=== PATIENT | female | born 1970 ===

== ENCOUNTER 2022-12-16 12:58 | Inpatient (IN) | payer MEDICARE, MEDICAID, SELFPAY ==
--- NOTE | 2022-12-15 21:30 | ECG_ITS ---
Measurements Intervals [place] Rate: 78 P: [place]: 0 QRS: -30 QRSD: 97 T: 83 QT: 351 QTc: 402 Interpretive Statements SINUS RHYTHM TRANSIENT ACCELERATED JUNCTIONAL RHYTHM BORDERLINE AV CONDUCTION DELAY INCOMPLETE RIGHT BUNDLE BRANCH BLOCK ABNORMAL ECG NO PREVIOUS ECG AVAILABLE FOR COMPARISON Electronically Signed On 12-16-2022 6:47:58 CDT by Isael Bowen D.O.
[2022-12-16] VITALS (42 sets, daily range): BP systolic 104–158; BP diastolic 63–100; PULSE 69–109; RESP 16–26; TEMP 31.9–37.3; O2SAT 92–100; BMI 33.4
--- NOTE | ~2022-12-16 | XR_ITS ---
Portable chest x-ray Comparison: 12/15/2022 at 9:36 PM Clinical History: Line placement Findings: Endotracheal tube and NG tube are in satisfactory positions. Diffuse interstitial prominen ce the right lung is again present, though less prominent as compared to prior exam. Left lung is ess entially clear. No pleural effusion or pneumothorax. Cardiomediastinal silhouette is stable. Bones a nd soft tissues are unremarkable. Impression: Extensive interstitial prominence of the right lung. Correlate for asymmetric interstitial edema or i nterstitial infection of the right lung. Support tubes, as above. Reviewed, dictated and finalized at location . Impression: Extensive interstitial prominence of the right lung. Correlate for asymmetric i nterstitial edema or interstitial infection of the right lung. Support tubes, as above.
--- NOTE | ~2022-12-16 | CT_ITS ---
EXAMINATION: CT BRAIN W/O DATE: 12/19/2022 11:50 INDICATION: Seizures. TECHNIQUE: Computed tomography (CT) of the head was performed without intravenous contrast. The dose- length product was 605.33 mGy-cm. COMPARISON: No prior studies for comparison. FINDINGS: There is poor farfan-white differentiation. There is effacement of the cortical sulci suggest ing diffuse edema. No ventriculomegaly or midline shift. Midline sagittal images demonstrate a normal corpus callosum, c raniovertebral junction and sella turcica. Basilar cisterns are patent. Paranasal sinuses and mastoids are pneumatized. No depressed skull fractures. IMPRESSION: 1. Diffuse effacement of the cortical sulci with poor farfan-white differentiation, suspicious for unde rlying vasogenic edema. No focal infarction or intracranial hemorrhage is seen. Reviewed, dictated and finalized at location A. IMPRESSION: 1. Diffuse effacement of the cortical sulci with poor farfan-white differentiatio n, suspicious for underlying vasogenic edema. No focal infarction or intracrani al hemorrhage is seen.
--- NOTE | ~2022-12-16 | XR_ITS ---
Upright portable view of the abdomen Clinical history: NG tube placement Findings: NG tube is in satisfactory position. Bowel gas pattern is nonspecific. No evidence for obst ruction or free air. No abnormal mass lesion or calcification is seen. Osseous structures are intact. Impression: NG tube in satisfactory position. Nonspecific bowel gas pattern. Reviewed, dictated and finalized at [facility]. Impression: NG tube in satisfactory position. Nonspecific bowel gas pattern.
--- NOTE | ~2022-12-16 | XR_ITS ---
Portable chest x-ray Comparison: None Clinical History: Tube placement Findings: Endotracheal tube is in satisfactory position. There is diffuse interstitial prominence of the right lung in particular. Possible minimal involvement in the left lung. No pleural effusion or pneumothorax. Cardiomediastinal silhouette is stable. Bones and soft tissues are unremarkable. Impression: Diffuse interstitial prominence of the right lung in particular. Correlate for asymmetric interstitia l edema or extensive interstitial infection the right lung. ET tube in place. Reviewed, dictated and finalized at location M. Impression: Diffuse interstitial prominence of the right lung in particular. Correlate for asymmetric interstitial edema or extensive interstitial infection the right phil g. ET tube in place.
--- NOTE | ~2022-12-16 | CT_ITS ---
Non-contrast Head CT History: Cardiac arrest Technique: Axial non-contrast imaging of the brain was performed. Dose reduction technique was used on this scan by utilizing automated exposure control and iterative reconstruction technique. The dose -length product (DLP) was 681.00 mGy-cm. Findings: There is no evidence of intracranial hemorrhage or mass lesion. There is probable preserva tion of farfan-white distinction, with some probable technical degradation. The ventricles and subarac hnoid spaces are normal in size. The calvarium appears normal. The visualized paranasal sinuses and mastoid air cells are clear. Impression: No significant abnormality seen. If there is persistent clinical concern for hypoxic/anoxic encephalo rachael, then follow-up MR would be recommended. Reviewed, dictated and finalized at [facility]. Impression: No significant abnormality seen. If there is persistent clinical concern for hy poxic/anoxic encephalopathy, then follow-up MR would be recommended.
--- NOTE | ~2022-12-16 | XR_ITS ---
XR chest 1V portable 12/20/2022 05:42 Indication: Respiratory failure Procedure: AP portable chest Comparison: Comparison to multiple prior studies sequentially, with oldest reviewed study dated 12/17. Findings: Endotracheal tube tip 3.2 cm above the catia. NG tube in the stomach. Heart size normal. B ilateral perihilar interstitial infiltrates with peribronchial thickening. No pleural effusion or pne umothorax. Impression: 1: Developing mild interstitial infiltrates bilaterally with peribronchial thickening which may repre sent pneumonia or edema. Reviewed, dictated and finalized at location A. Impression: 1: Developing mild interstitial infiltrates bilaterally with peribronchial thic kening which may represent pneumonia or edema.
--- NOTE | ~2022-12-16 | US_ITS ---
EXAMINATION: US renal BI DATE: 12/18/2022 13:12 INDICATION: Acute renal insufficiency. TECHNIQUE: Multiple ultrasound grayscale images of the kidneys were obtained. COMPARISON: None. FINDINGS: The right kidney measures 9.5 x 4.6 x 4.3 cm. The left kidney measures 10.1 x 4.3 x 3.6 cm. The kidne ys demonstrate normal echogenicity. There is no hydronephrosis in either kidney. No stones identifie d. The bladder is nonvisualized likely decompressed with a Camargo catheter reportedly in place. IMPRESSION: 1. Normal kidneys without hydronephrosis. Reviewed, dictated and finalized at location A.
--- NOTE | ~2022-12-16 | XR_ITS ---
Portable upright view of the abdomen Clinical history: NG tube placed Findings: NG tube is in satisfactory position. Bowel gas pattern is nonspecific. Moderate stool noted . No evidence for obstruction or free air. No abnormal mass lesion or calcification is seen. Osseous structures are intact. Impression: NG tube in satisfactory position. Moderate stool. Reviewed, dictated and finalized at [facility]. Impression: NG tube in satisfactory position. Moderate stool.
--- NOTE | ~2022-12-16 | XR_ITS ---
Portable chest x-ray Comparison: 12/15/2022 Clinical History: Respiratory failure Findings: Endotracheal tube and NG tube are in satisfactory positions. Possible minimal interstitial prominence in the lung bases bilaterally. Cardiomediastinal silhouette is stable. Bones and soft ti ssues are unremarkable. Impression: Questionable minimal residual interstitial prominence, especially right lung base. Support tubes, as above. Reviewed, dictated and finalized at location . Impression: Questionable minimal residual interstitial prominence, especially right lung ba se. Support tubes, as above.
--- NOTE | ~2022-12-16 | CT_ITS ---
EXAMINATION: CTA chest PE abdomen pel DATE: 12/16/2022 08:07 CDT INDICATION: Status post cardiac arrest. TECHNIQUE: Computed tomographic angiography (CTA) of the chest, abdomen, and pelvis was performed wit h 100 mL Omnipaque-350 intravenous contrast. The dose-length product was 2053.05 mGy-cm. Maximum inte nsity projection 3D-reconstructions of the aorta and other arteries were constructed by the technolog ist on a separate workstation. Automated exposure control and iterative reconstruction technique were employed. COMPARISON: CT dated 12/16/2022. FINDINGS: CHEST CTA: There is an endotracheal tube present. There is an NG tube in the stomach. No pneumothorax. There are patchy groundglass opacities throughout both lungs with peripheral interlobular septal thickening. T here is patchy focal areas of consolidation in the lower lobes. Heart size normal. There is emphysema . There are small subpleural nodules in the right upper lobe measuring 3 mm or less, likely benign. T here is mild mediastinal and right hilar lymphadenopathy, likely reactive. No evidence for aortic ane urysm or dissection. No central pulmonary embolism. ABDOMEN AND PELVIS CTA: No evidence for abdominal aortic aneurysm. The celiac axis, SMA, renal arteries and JEAN-PIERRE are patent. T here is a right femoral vascular catheter extending into the right external iliac vein. There are air -fluid levels in the small bowel and colon, most likely ileus. There are calcified granulomas of the spleen. Evaluation of the abdomen limited by motion. Fatty infiltration of the liver. There are calci fied granulomas of the liver. Gallbladder is distended. The pancreas, adrenal glands and kidneys are unremarkable. No free air or free fluid. There is Camargo catheter present in the bladder which is deco mpressed. Moderate multilevel degenerative disc disease. There is grade 1 spondylolisthesis at L5-S1. No focal lytic or blastic lesions. IMPRESSION: 1. Bilateral interstitial changes of the lungs with interlobular septal thickening, patchy groundglas s opacities, compatible with edema. Focal consolidation of the lower lobes is suspicious for superimp osed pneumonia. Consider aspiration. 2: Fluid throughout the small bowel and proximal colon with air-fluid levels, most likely adynamic il eus. 3: Thoracic lymphadenopathy, likely reactive. Reviewed, dictated and finalized at location B. IMPRESSION: 1. Bilateral interstitial changes of the lungs with interlobular septal thicken ing, patchy groundglass opacities, compatible with edema. Focal consolidation o f the lower lobes is suspicious for superimposed pneumonia. Consider aspiration . 2: Fluid throughout the small bowel and proximal colon with air-fluid levels, m ost likely adynamic ileus. 3: Thoracic lymphadenopathy, likely reactive.
--- NOTE | ~2022-12-16 | XR_ITS ---
Portable chest x-ray Comparison: 12/17/2022 Clinical History: Respiratory failure Findings: Endotracheal tube and NG tube are in satisfactory positions. Questionable minimal intersti tial prominence in the lung bases. Cardiomediastinal silhouette is stable. Bones and soft tissues ar e unremarkable. Impression: Questionable minimal bibasilar interstitial prominence, nonspecific. Support tubes, as above. Reviewed, dictated and finalized at location . Impression: Questionable minimal bibasilar interstitial prominence, nonspecific. Support tubes, as above.
--- NOTE | ~2022-12-16 | XR_ITS ---
Portable chest x-ray Comparison: 12/20/2022 Clinical History: Respiratory failure Findings: Endotracheal tube and NG tube are in satisfactory positions. There is probable minimal int erstitial prominence diffusely. No focal consolidation or pleural effusion. Cardiomediastinal silhou ette is stable. Bones and soft tissues are unremarkable. Impression: Probable diffuse interstitial prominence, unchanged. Support tubes, as above. Reviewed, dictated and finalized at location . Impression: Probable diffuse interstitial prominence, unchanged. Support tubes, as above.
--- NOTE | ~2022-12-16 | XR_ITS ---
XR chest 1V portable 12/19/2022 05:56 Indication: Respiratory failure Procedure: AP portable chest Comparison: Comparison to multiple prior studies sequentially, with oldest reviewed study dated 04/2023. Findings: NG tube in the stomach. Endotracheal tube tip approximately 3 cm above the catia. Bilatera l perihilar infiltrates, suspicious for pneumonia. No pleural effusion or pneumothorax. Impression: 1: Developing bilateral perihilar infiltrates, suspicious for pneumonia. Reviewed, dictated and finalized at location A. Impression: 1: Developing bilateral perihilar infiltrates, suspicious for pneumonia.
--- NOTE | ~2022-12-16 | CT_ITS ---
CT Scan of the Chest without Contrast: Clinical Indication: Cardiac arrest Technique: Contiguous sections were acquired throughout the chest without intravenous contrast. Dose reduction technique was used on this scan by utilizing automated exposure control and iterative recon struction technique. The dose-length product (DLP) was 710.68 mGy-cm. Findings: Endotracheal and NG tube are in place. There is no evidence of any significant mediastinal, hilar or axillary lymphadenopathy. Shotty medias tinal lymph nodes are not enlarged by size criteria. The mediastinal soft tissues appear normal. No p ericardial effusion. Minimal right pleural effusion present. No left pleural effusion. There is extensive interstitial prominence/thickening, most notably in the right lower lobe. There is patchy consolidation the right lower lobe with several focal irregular airspace opacities in the lef t lower lobe. There is a focal somewhat nodular opacity at the posterior right upper lobe measuring 1 cm in diameter (axial image 20). Images through the upper abdomen reveal no abnormalities. There are nondisplaced fractures of the lef t second, third, fourth, and fifth ribs anteriorly. There is probable nondisplaced fracture of the an terior right third rib. Impression: Probable mild diffuse mixed alveolar and interstitial pulmonary edema. Correlate for superimposed pne umonia, especially at the lower lobes, versus atelectatic change. Minimal right pleural effusion. Are the fractures, as detailed above. Reviewed, dictated and finalized at [facility]. Impression: Probable mild diffuse mixed alveolar and interstitial pulmonary edema. Correlat e for superimposed pneumonia, especially at the lower lobes, versus atelectatic change. Minimal right pleural effusion. Are the fractures, as detailed above.
[2022-12-16 06:17] LABS: Glucose Point of Care 154 mg/dl (65-105)
[2022-12-16 06:31] LABS: INR 1.7; Prothrombin Time 21.4 Seconds (11.1-14.7)
[2022-12-16 06:37] LABS: Add Urine Microscopic? NO; Appearance Urine Clear (Clear); Bilirubin Urine Negative (Negative); Blood Urine Negative (Negative); Color Urine Yellow (Yellow); Glucose Urine UA Negative (Negative); Ketones Urine Negative (Negative); Leukocyte Esterase Ur Negative LEU/UL (NEGATIVE); Nitrate Urine Negative (Negative); Protein Urine Negative (Negative); Urobilinogen Urine 0.2 mg/dL (<2.0)
--- NOTE | 2022-12-16 07:01 | ADMGEN ---
This patient, Katelyn Law, was admitted to Intensive Care Unit-11. Patient/family oriented to hospital policies and general routines including ID bracelet, bed and alarms, visiting hours, pain management, procedures, bathroom and other care routines, personal items, smoking policy, room service/diet, and visiting hours. Information on how to activate the Rapid Response Team has been discussed. Patient/Family are encouraged to report perceived risks to care and to ask questions if they do not understand what they are told or what they should do.
--- NOTE | 2022-12-16 07:21 | ECHO_ITS ---
Patient Info Name: Katelyn Law Age: 52 years : 1970 Gender: Female Ht: 66 in Wt: 206 lbs BSA: 2.12 m2 HR: 136 bpm BP: 134 / 102 mmHg Heart Rhythm: Sinus Rhythm, Tachycardia Technical Quality: Fair Exam Date: 12/16/2022 7:47 AM Exam Location: [facility] Pulmonary Patient Status: Inpatient Admit Date: 12/16/2022 Staff Ordering Physician: Ramon Paulino MD Cotton Chopper: Krystina Romero RDCS Attending Provider: Vasu Schaffer MD Exam Type: CA echo doppler color flow Study Info Indications - resp arrest/hypothermia Complete two-dimensional, color flow and Doppler transthoracic echocardiogram is performed. Summary 1. Complete two-dimensional, color flow and Doppler transthoracic echocardiogram is performed. 2. Left ventricular chamber dimension is normal. 3. Left ventricular systolic function is normal, estimated at 60-65%. 4. Left ventricular septal wall motion is abnormal with septal motion related to bundle branch block. 5. Right ventricular systolic function is normal. 6. Left atrial chamber dimension is mildly enlarged. 7. There is mild mitral valve regurgitation. 8. There is mild tricuspid valve regurgitation. Left Ventricle Left ventricular chamber dimension is normal. Left ventricular systolic function is normal, estimated at 60-65%. There is no increased left ventricular wall thickness. Left ventricular septal wall motion is abnormal with septal motion related to bundle branch block. Right Ventricle Right ventricular chamber dimension is normal. Right ventricular systolic function is normal. Left Atria Left atrial chamber dimension is mildly enlarged. Right Atria Right atrial chamber dimension is normal. Atrial Septum Intact interatrial septum visualized by color flow imaging. Aortic Valve The aortic valve is not well visualized. There is mild aortic valve sclerosis. There is no aortic valve stenosis. There is no aortic valve regurgitation. Pulmonic Valve The pulmonic valve is not well visualized. Mitral Valve There is mild mitral valve regurgitation. Tricuspid Valve There is mild tricuspid valve regurgitation. Pericardium/Pleural There is no pericardial effusion. Inferior Vena Cava Normal inferior vena cava with >50% collapse upon inspiration consistent with normal right atrial pressure, 3 mmHg. Aorta The aortic root size at the sinus of Valsalva is normal. Tricuspid Valve Name Value Normal Estimated PAP/RSVP RA Pressure 3 mmHg <=5 Report Signatures
[2022-12-16 07:26] LABS: Alveolar/Arterial O2 Gradient 190.6 mmHg; Base Excess ABG -1.9 mEq/l (+/-2.0); HCO3 ABG 23.6 mEq/l (22.0-26.0); Oxygen Saturation ABG 99.9 % (95.0-100.0); Oxyhemoglobin 97.9 % THb (90.0-100.0); PCO2 ABG 43.2 mmHg (35.0-45.0); PO2 ABG 479.2 mmHg (80.0-100.0); Total Hemoglobin 12.1 g/dL (12.0-18.0); pH ABG 7.355 (7.350-7.450)
[2022-12-16 07:27] LABS: Carboxyhemoglobin 0.9 % THb (0-2.0); Device VENTILATOR; Fractional Inspired Oxygen 100 %; Methemoglobin ABG 0.9 %THb (0-1.5); Modified Allen's Test Pass; PO2 FiO2 Ratio Arterial Blood 4.79 %; Reduced Hemoglobin 0.9 %THb (0-5.0); Site Drawn RIGHT RADIAL
[2022-12-16 07:28] LABS: Arterial Blood Gas PEEP 5 cmH2O; Arterial Blood Gas Vent Mode PRESSURE CONTROL; Arterial Blood Gas Ventilator rate 18 /MIN; Peak Inspiratory Pressure 28 cmH2O
[2022-12-16 07:37] LABS: Glucose Point of Care 140 mg/dl (65-105)
[2022-12-16 07:42] LABS: Amphetamine Screen Urine Negative (Negative); Barbiturate Screen Urine Negative (Negative); Benzodiazepines Screen Urine Negative (Negative); Cocaine Screen Urine Negative (Negative); Methadone Screen Urine Negative (Negative)
[2022-12-16 07:43] LABS: Cannabinoid Screen Urine Negative (Negative); Opiate Screen Urine Positive (Negative); Phencyclidine Screen Urine Negative (Negative)
[2022-12-16 08:30] LABS: Glucose Point of Care 154 mg/dl (65-105)
[2022-12-16 08:59] LABS: Creatine Kinase 768 U/L (30-135); INR 1.1; Magnesium 2.1 mg/dL (1.6-2.3); Prothrombin Time 14.3 Seconds (11.1-14.7)
[2022-12-16 09:00] LABS: Partial Thromboplastin Time 31.3 SECONDS (22.3-36.8)
--- NOTE | 2022-12-16 09:10 | PC.NURSE ---
0900-fentanyl gtt increased to 200 mcg/hr and versed gtt increased to 8 mg/hr. Dr. Paulino at bedside to evaluate patient. 50 mg Rocuronium given IVP x 1.
[2022-12-16] MEDS: MIDAZOLAM 100MG/NS 100ML(*CRX) 100 MG/100 ML BAG 8 MG IV CONT ×2 (09:12→14:16)
[2022-12-16] MEDS: FENTANYL 2,500MCG/NS250ML(*CRX 2,500 MCG/250 ML BAG 20 MCG IV CONT ×2 (09:13→17:57)
[2022-12-16] MEDS: ROCURONIUM BROMIDE 50 MG/5 ML VIAL IV PUSH (09:15)
[2022-12-16 09:16] LABS: Lactic Acid Reflex 0.9 mmol/L (0.7-2.0)
[2022-12-16 09:34] LABS: Alanine Aminotransferase 43 U/L (6-35); Albumin Level 3.5 g/dL (3.5-5.1); Alkaline Phosphatase 149 U/L (38-126); Anion Gap 5 mmol/L (8-16); Aspartate Amino Transferase 55 U/L (14-36); Bilirubin,Total 0.5 mg/dL (0.2-1.3); Blood Urea Nitrogen 24 mg/dL (7-17); Calcium 8.6 mg/dL (8.4-10.2); Carbon Dioxide 31 mmol/L (22-30); Chloride 97 mmol/L (98-107); Estimated CRCL calculation 46 ml/min; Estimated Glomerular Filt Rate 37; Glucose 151 mg/dL (65-110); Potassium 5.1 mmol/L (3.4-5.0); Sodium 133 mmol/L (137-145); Total Protein 5.8 g/dL (6.3-8.2)
[2022-12-16 09:43] LABS: Base Excess ABG 0.3 mEq/l (+/-2.0); Fractional Inspired Oxygen 50 %; HCO3 ABG 26.5 mEq/l (22.0-26.0); Oxygen Content ABG 17.4 %vol (16.0-22.0); Oxygen Saturation ABG 97.1 % (95.0-100.0); Oxyhemoglobin 96.2 % THb (90.0-100.0); PCO2 ABG 49.2 mmHg (35.0-45.0); PO2 ABG 97.9 mmHg (80.0-100.0); PO2 FiO2 Ratio Arterial Blood 1.96 %; Total Hemoglobin 12.8 g/dL (12.0-18.0); pH ABG 7.349 (7.350-7.450)
[2022-12-16 09:45] LABS: Arterial Blood Gas Ventilator rate 18 /MIN; Device VENTILATOR; Modified Allen's Test Pass; Site Drawn LEFT RADIAL
[2022-12-16 09:45] LABS: Glucose Point of Care 142 mg/dl (65-105)
[2022-12-16 09:46] LABS: Hematocrit 34.8 % (37.0-47.0); Hemoglobin 11.7 g/dL (12.0-15.0); Mean Corpuscular HGB Conc 33.6 g/dl (32-36); Mean Corpuscular Hemoglobin 31.2 pg (26-34); Mean Corpuscular Volume 92.8 fl (80-100); Mean Platelet Volume 9.9 fl (7.4-10.4); Platelet Count Result 287 k/mm3 (150-375); Red Blood Count 3.75 M/mm3 (4.2-5.4); Red Cell Distribution Width 14.3 % (11.5-14.5); White Blood Count 24.8 K/mm3 (4.5-10.0)
[2022-12-16 09:46] LABS: Arterial Blood Gas Vent Mode PRESSURE CONTROL; Peak Inspiratory Pressure 24 cmH2O
--- NOTE | 2022-12-16 09:59 | WPDCNINT ---
Assessment and Plan Assessment and plan (1) Acute respiratory failure: Code(s): J96.00 - Acute respiratory failure, unspecified whether with hypoxia or hypercapnia Status: Acute Assessment and Plan: Acute Respiratory failure secondary to cardiac arrest, pulmonary edema, aspiration pneumonia patient also has baseline COPD CTA lung was negative for PE and showed 1. Bilateral interstitial changes of the lungs with interlobular septal thickening, patchy groundglass opacities, compatible with edema. Focal consolidation of the lower lobes is suspicious for superimposed pneumonia. Consider aspiration. Continue full mechanical ventilation support to prevent hypoxemia/hypercarbia and end organ damage. ABG reviewed and I will decrease FiO2 to 50%. Increase rate to 22 Lasix IV x1 Check blood and sputum cultures and procalcitonin. Start empiric Zosyn for aspiration of Low tidal volume ventilation strategy to prevent volutrauma Start Bronchodilators (2) Cardiac arrest: Code(s): I46.9 - Cardiac arrest, cause unspecified Status: Acute Assessment and Plan: Patient had a PEA cardiac arrest which is likely secondary to respiratory failure as patient was short of breath and in respiratory distress for a while to collapsing. CT confirmed pulmonary edema and aspiration pneumonia. Negative for PE Now intubation did and on mechanical ventilation Echo ordered and pending 1st troponin was mildly elevated but 2nd is normal Consult cardiology (3) CKD (chronic kidney disease): Code(s): N18.9 - Chronic kidney disease, unspecified Status: Acute Assessment and Plan: Patient has history of chronic kidney disease with a baseline creatinine is unknown I will try to obtain records from [facility] Monitor urine output electrolytes and creatinine (4) Congestive heart failure: Code(s): I50.9 - Heart failure, unspecified Status: Acute Assessment and Plan: Patient has history of congestive heart failure but details unknown Echo is ordered and pending (5) Diabetes mellitus: Code(s): E11.9 - Type 2 diabetes mellitus without complications Status: Acute Assessment and Plan: Will start patient on sliding scale insulin at this time (6) Pulmonary edema: Code(s): J81.1 - Chronic pulmonary edema Status: Acute Assessment and Plan: See above (7) Anoxic brain injury: Code(s): G93.1 - Anoxic brain damage, not elsewhere classified Status: Acute Assessment and Plan: Patient has sustained anoxic brain injury. She was completely comatose after resuscitation Her pupils are slightly unequal but reactive light. She still over breathe the ventilator Head CT was negative on presentation Patient has been started on TTM protocol which will be continued I have started patient on Nimbex infusion due to shivering (8) Aspiration pneumonia: Code(s): J69.0 - Pneumonitis due to inhalation of food and vomit Status: Acute Assessment and Plan: See above (9) Anemia: Code(s): D64.9 - Anemia, unspecified Status: Acute Assessment and Plan: Patient presented with hemoglobin of 6.1. No history available of GI bleeding. Not on any anti coag Check stool occult Transfusion of 2 units of PRBC has been ordered but patient has antibiotics and transfusion has been delayed Monitor hemoglobin. Transfuse additionally if needed IV PPI Plan DVT prophylaxis -SCDs Stress ulcer prophylaxis -PPI Nutrition -NPO Code Status - Full Code I spoke to patient's friend who lives with her and patient's sister. Patient is not . She has 2 biological children. Daughter is estranged and a drug addict as per the family member. Son lives in [facility]. He is aware of patient's current status. They state that they had had extensive discussion with the patient in the past. She had stated to them that she did not wanted
[2022-12-16 10:05] LABS: NT Pro B Type Natriuretic Pept 306 pg/mL (19.9-100); Troponin I < 0.012 ng/mL (0.000-0.034)
[2022-12-16 10:10] LABS: Glucose Point of Care 143 mg/dl (65-105)
[2022-12-16] MEDS: MINERAL OIL/WHITE PETROLATUM OINTMENT 1 APPLIC EACH EYE ×2 (10:34→21:04)
[2022-12-16] MEDS: MAGNESIUM SULF 4 GM/WATER100ML 4 GM/100 ML BAG IVPB (10:35)
[2022-12-16] MEDS: FUROSEMIDE INJ 100 MG/10 ML VIAL 80 MG IV PUSH (10:35)
[2022-12-16] MEDS: CISATRACURIUM BESYLATE 20 MG/10 ML VIAL 15 MG IV PUSH (10:36)
[2022-12-16] MEDS: CISATRACURIUM BESYLATE 200 MG in DEXTROSE 5% 80 ML 8.45 ML IV CONT (10:36)
[2022-12-16 10:46] LABS: Alveolar/Arterial O2 Gradient 229.9 mmHg
--- NOTE | 2022-12-16 11:16 | PM.CNCAR ---
Assessment and Plan Assessment and plan (1) Cardiac arrest: Code(s): I46.9 - Cardiac arrest, cause unspecified Status: Acute (2) Acute respiratory failure: Code(s): J96.00 - Acute respiratory failure, unspecified whether with hypoxia or hypercapnia Status: Acute (3) Anoxic brain injury: Code(s): G93.1 - Anoxic brain damage, not elsewhere classified Status: Acute (4) Pulmonary edema: Code(s): J81.1 - Chronic pulmonary edema Status: Acute (5) Congestive heart failure: Code(s): I50.9 - Heart failure, unspecified Status: Acute Plan Patient presented after PEA cardiac arrest which appears to be most likely 2/2 respiratory failure. Concern for anoxic brain injury as patient was noted to be completely comatose after resuscitation. She is currently intubated on mechanical ventilation and being cooled as per the cooling protocol. EKG on admission showed sinus rhythm with transient accelerated junctional rhythm, telemetry this morning shows sinus rhythm. Echocardiogram reviewed - EF is preserved with no significant valvular disease. CXR and CT with pulmonary edema for which she is getting intermittent IV Lasix for. Continue with intermittent IV Lasix as needed. Recommend ASA 81mg once daily if no bleeding issues. Resume home statin when appropriate - currently has elevated liver enzymes. On Losartan and propranolol at home - would continue to hold for now. At this time, no other specific cardiac recommendations, will continue to follow along and see how she recovers. History of Present Illness History of Present Illness Consult date/time: 12/16/22 11:16 Requesting physician: Ramon Paulino MD Consult reason: Other (Cardiac Arrest) Reason For Visit: resp failure Narrative: We are consulted for cardiac arrest. Patient is a 52-year-old female with a reported history of congestive heart failure, COPD, smoking, diabetes, anxiety, degenerative joint disease, depression, chronic kidney disease who presented with cardiac arrest. Patient is currently intubated, therefore, all history obtained from the patient's electronic medical record and her medical team. Patient was with her friend yesterday and they were out to play pool and then patient started feeling short of breath. Decided to return home in the car, and patient had stated she could not breathe. Patient then went down and friend called 911. On instruction of 911, friend started doing CPR. When EMS arrived, patient had GCS of 3 and was laying on the side of the road. No CPR was being performed at that time. Patient noted to have agonal breathing and was cyanotic. Patient noted to have weak pulses. Patient noted to be bradycardic with HR in the 20s. Patient intubated, with improvement in heart rate, but then lost pulses, and CPR was started. Patient given Narcan and Epinephrine. In the ED, Hgb noted to be 6, given blood transfusion. Admitted to the ICU. Cooling protocol initiated as patient unresponsive after ROSC obtained. EKG showed sinus rhythm with transient accelerated junctional rhythm, incomplete RBBB. Echocardiogram done today and shows LVEF 60-65%, mild MR, mild TR. WBC 24.8, Cr 1.5, lactate WNL, initial troponin 0.210 and then repeat negative, BNP elevated at 306. CT C/A/P shows bilateral interstitial changes of the lungs with interlobular septal thickening, patchy groundglass opacities, compatible with edema. Possible superimposed pneumonia. Adynamic ileus. Telemetry with sinus rhythm this morning. Review of Systems Review of Systems: ROS unobtainable: Yes unobtainable due to endotracheal tube PMFSH Past Medical History Medical History CKD (chronic kidney disease) Congestive heart failure Depression Diabetes mellitus Surgical History Surgical History Status post lumbar spine surgery for decompression of spinal cord
[2022-12-16 11:17] LABS: Glucose Point of Care 152 mg/dl (65-105)
--- NOTE | 2022-12-16 12:00 | ECG_ITS ---
Measurements Intervals [place] Rate: 78 P: 70 SC: 165 QRS: 51 QRSD: 115 T: 56 QT: 472 QTc: 541 Interpretive Statements SINUS RHYTHM WITH FIRST DEGREE AV BLOCK INCOMPLETE RIGHT BUNDLE BRANCH BLOCK LOW QRS VOLTAGE IN PRECORDIAL LEADS BASELINE WANDER- V2-V3 BORDERLINE ECG COMPARED TO ECG 12/15/2022 21:24:31 JUNCTIOINAL RHYTHM NO LONGER PRESENT Electronically Signed On 12-16-2022 12:07:55 CDT by Isael Bowen D.O.
[2022-12-16] MEDS: PIPERACILLIN/TAZOBACTAM SOD 4.5 GM in SODIUM CHLORIDE 0.9% IV 100 ML 200 ML IVPB ×2 (12:14→17:52)
[2022-12-16] MEDS: methylPREDNISolone SOD SUCC 125 MG VIAL 60 MG IV PUSH (12:17)
[2022-12-16 12:36] LABS: Glucose Point of Care 162 mg/dl (65-105)
[2022-12-16] MEDS: IPRATROPIUM BR 0.02% INH SOLN 0.5 MG/2.5 ML VIAL INHALATION ×2 (13:45→20:10)
[2022-12-16] MEDS: ALBUTEROL SULFATE NEB 2.5 MG/3 ML INH INHALATION ×2 (13:45→20:10)
[2022-12-16 14:06] LABS: Glucose Point of Care 190 mg/dl (65-105)
[2022-12-16 14:11] LABS: Hematocrit 36.6 % (37.0-47.0); Hemoglobin 12.2 g/dL (12.0-15.0); Mean Corpuscular HGB Conc 33.3 g/dl (32-36); Mean Corpuscular Hemoglobin 30.7 pg (26-34); Mean Corpuscular Volume 92.2 fl (80-100); Mean Platelet Volume 9.4 fl (7.4-10.4); Platelet Count Result 237 k/mm3 (150-375); Red Blood Count 3.97 M/mm3 (4.2-5.4); Red Cell Distribution Width 14.3 % (11.5-14.5); White Blood Count 21.8 K/mm3 (4.5-10.0)
[2022-12-16 14:22] LABS: Creatine Kinase 1133 U/L (30-135)
[2022-12-16 14:23] LABS: Lactic Acid Reflex 1.3 mmol/L (0.7-2.0)
[2022-12-16 15:19] LABS: Glucose Point of Care 199 mg/dl (65-105)
[2022-12-16 16:09] LABS: Glucose Point of Care 208 mg/dl (65-105)
[2022-12-16 16:57] LABS: Glucose Point of Care 239 mg/dl (65-105)
--- NOTE | 2022-12-16 17:46 | PM.IMHP ---
H&P: HPI History of Present Illness Date/Time: 12/16/22 17:46 Chief Complaint: Cardiac arrest Narrative: HPI Patient is currently intubated unable to provide any review of symptoms or history, history is as recorded from reviewing electronic charts Patient is a 52-year-old with history of chronic respiratory failure with COPD on 2 L oxygen at home apparently patient was out with her friend and developed shortness of breath on her way home, 911 was called patient was in cardiac arrest any EMS instructed patient's friend start the CPR, and upon arrival of EMS patient was bradycardic and hypoxic patient was intubated patient was brought to the emergency depart, currently patient is in ICU seen by electric hoist operator and electric needle specialist will continue to monitor. Patient with cardiac arrest respiratory failure will remain in the hospital for 2 midnights admitted as inpatient Review of Systems Review of Systems: ROS unobtainable: Yes unobtainable due to endotracheal tube PMFSH Past Medical History Medical History CKD (chronic kidney disease) Congestive heart failure Depression Diabetes mellitus Surgical History Surgical History Status post lumbar spine surgery for decompression of spinal cord Family History Family History (System 12/17/22 @ 10:49 by Felicia Francisco) Sibling Hypertension Father Pancreatic adenoma Mother Asthma Other Diabetes mellitus Social History Social History (System 12/17/22 @ 10:49 by Felicia Francisco) Social History: Heavy smoker in the past used to smoke 2 and half pack per day until a year ago. Now smoking 1 pack a day. Friend denies any alcohol or drug abuse Smoking packs per day: 1 Smoking cigarettes per day: 20.0 Years smoked: 40 Smoking pack-years: 40.00 Smoking status: Former smoker Alcohol intake: never Substance use: never Spiritual care concerns: No Meds Home Medications and Allergies Home Medications Medication Instructions Recorded Confirmed Type allopurinol 100 mg tablet 100 mg PO DAILY 12/16/22 12/16/22 History atorvastatin 20 mg tablet 20 mg PO DAILY 12/16/22 12/16/22 History budesonide 160 mcg-glycopyr 9 2 inh inhalation BID 12/16/22 12/16/22 History mcg-formot 4.8 mcg/actuation HFA inhaler (Breztri Aerosphere) calcitriol 0.25 mcg capsule 0.25 mcg PO EVERY OTHER DAY 12/16/22 12/16/22 History cariprazine 4.5 mg capsule 4.5 mg PO DAILY 12/16/22 12/16/22 History (Vraylar) cyclobenzaprine 10 mg tablet 10 mg PO TID 12/16/22 12/16/22 History ergocalciferol (vitamin D2) 1,250 1,250 mcg PO WEEKLY 12/16/22 12/16/22 History mcg (50,000 unit) capsule furosemide 40 mg tablet 80 mg PO BID 12/16/22 12/16/22 History losartan 25 mg tablet 25 mg PO DAILY 12/16/22 12/16/22 History metformin 500 mg tablet 500 mg PO BID 12/16/22 12/16/22 History morphine 15 mg tablet,extended 15 mg PO Q8H 12/16/22 12/16/22 History release omeprazole 20 mg capsule,delayed 20 mg PO DAILY 12/16/22 12/16/22 History release potassium chloride 20 mEq 20 meq PO DAILY 12/16/22 12/16/22 History tablet,extended release(part/cryst) (Klor-Con M) propranolol 10 mg tablet 10 mg PO DAILY 12/16/22 12/16/22 History quetiapine 100 mg tablet 100 mg PO HS 12/16/22 12/16/22 History sodium bicarbonate 650 mg tablet 650 mg PO BID 12/16/22 12/16/22 History venlafaxine 75 mg capsule,extended 75 mg PO DAILY 12/16/22 12/16/22 History release 24 hr Allergies Allergy/AdvReac Type Severity Reaction Status Date / Time No Known Allergies Allergy Verified 12/17/22 10:49 Vital Signs Vital Signs - 24 hr 12/16/22 07:52 12/16/22 08:21 12/16/22 09:13 Temperature 99.1 F Pulse Rate 109 H 109 H 106 H Respiratory Rate 26 H 18 Blood Pressure Pulse Oximetry 98 98 Oxygen Delivery Mechanical Ventilation Fraction of Inspired Oxygen 100 12/16/22 08:00 12/16/22 08
[2022-12-16] MEDS: CENTRAL LINE FLUSH 10 ML IV PUSH ×2 (17:52→21:05)
[2022-12-16 18:24] LABS: Glucose Point of Care 216 mg/dl (65-105)
[2022-12-16 19:09] LABS: Glucose Point of Care 223 mg/dl (65-105)
--- NOTE | 2022-12-16 20:00 | ECG_ITS ---
Measurements Intervals [place] Rate: 74 P: 80 MS: 211 QRS: 47 QRSD: 112 T: 53 QT: 503 QTc: 560 Interpretive Statements SINUS RHYTHM WITH FIRST DEGREE AV BLOCK INCOMPLETE RIGHT BUNDLE BRANCH BLOCK LOW QRS VOLTAGE IN PRECORDIAL LEADS BORDERLINE ECG COMPARED TO ECG 12/16/2022 11:56:13 NO SIGNIFICANT CHANGES Electronically Signed On 12-16-2022 21:15:17 CDT by Isael Bowen D.O.
[2022-12-16 20:20] LABS: Hematocrit 33.6 % (37.0-47.0); Hemoglobin 11.5 g/dL (12.0-15.0); Mean Corpuscular HGB Conc 34.2 g/dl (32-36); Mean Corpuscular Hemoglobin 31.3 pg (26-34); Mean Corpuscular Volume 91.3 fl (80-100); Mean Platelet Volume 9.4 fl (7.4-10.4); Platelet Count Result 220 k/mm3 (150-375); Red Blood Count 3.68 M/mm3 (4.2-5.4); Red Cell Distribution Width 14.3 % (11.5-14.5); White Blood Count 17.8 K/mm3 (4.5-10.0)
[2022-12-16 20:30] LABS: INR 1.1; Prothrombin Time 14.5 Seconds (11.1-14.7)
[2022-12-16 20:31] LABS: Partial Thromboplastin Time 34.9 SECONDS (22.3-36.8)
[2022-12-16 20:36] LABS: Lactic Acid Reflex 1.7 mmol/L (0.7-2.0)
[2022-12-16 20:46] LABS: Alanine Aminotransferase 55 U/L (6-35); Albumin Level 3.6 g/dL (3.5-5.1); Alkaline Phosphatase 157 U/L (38-126); Anion Gap 9 mmol/L (8-16); Aspartate Amino Transferase 74 U/L (14-36); Blood Urea Nitrogen 26 mg/dL (7-17); Calcium 8.1 mg/dL (8.4-10.2); Carbon Dioxide 31 mmol/L (22-30); Chloride 96 mmol/L (98-107); Creatine Kinase 906 U/L (30-135); Estimated CRCL calculation 53 ml/min; Estimated Glomerular Filt Rate 43; Glucose 215 mg/dL (65-110); Potassium 2.4 mmol/L (3.4-5.0); Sodium 136 mmol/L (137-145)
[2022-12-16] MEDS: INSULIN ASPART (*BKC) 100 UNITS/ML SUB-Q (21:01)
[2022-12-16] MEDS: PANTOPRAZOLE SODIUM IV 40 MG VIAL IV PUSH (21:04)
[2022-12-16 21:18] LABS: Glucose Point of Care 205 mg/dl (65-105)
[2022-12-16 21:18] LABS: Glucose Point of Care 221 mg/dl (65-105)
[2022-12-16] MEDS: KCL 40 MEQ/WATER 100 ML 100 ML 25 ML IVPB (22:04)
[2022-12-16] MEDS: POTASSIUM CHLORIDE 20 MEQ PACKET (FOR LIQUID) 40 MEQ FEED TUBE (22:05)
[2022-12-16 22:14] LABS: Glucose Point of Care 224 mg/dl (65-105)
[2022-12-16 23:09] LABS: Glucose Point of Care 215 mg/dl (65-105)
[2022-12-17] VITALS (72 sets, daily range): BP systolic 90–131; BP diastolic 51–84; PULSE 68–133; RESP 13–22; TEMP 31.9–37.9; O2SAT 91–100
[2022-12-17] MEDS: PIPERACILLIN/TAZOBACTAM SOD 4.5 GM in SODIUM CHLORIDE 0.9% IV 100 ML 200 ML IVPB ×4 (00:21→17:05)
[2022-12-17 00:56] LABS: Lactic Acid Reflex 1.5 mmol/L (0.7-2.0)
[2022-12-17 00:58] LABS: Creatine Kinase 761 U/L (30-135)
[2022-12-17] MEDS: INSULIN ASPART (*BKC) 100 UNITS/ML SUB-Q (01:00)
[2022-12-17 01:14] LABS: Troponin I 0.069 ng/mL (0.000-0.034)
[2022-12-17] MEDS: KCL 20 MEQ/SW 100 ML 100 ML 50 MEQ IVPB (02:04)
[2022-12-17] MEDS: CISATRACURIUM BESYLATE 200 MG in DEXTROSE 5% 80 ML IV CONT (02:11)
[2022-12-17] MEDS: MIDAZOLAM 100MG/NS 100ML(*CRX) 100 MG/100 ML BAG 8 MG IV CONT ×2 (02:12→14:08)
[2022-12-17 02:21] LABS: Glucose Point of Care 208 mg/dl (65-105)
[2022-12-17] MEDS: ALBUTEROL SULFATE NEB 2.5 MG/3 ML INH INHALATION ×4 (02:28→20:53)
[2022-12-17] MEDS: IPRATROPIUM BR 0.02% INH SOLN 0.5 MG/2.5 ML VIAL INHALATION ×4 (02:28→20:53)
[2022-12-17 05:12] LABS: Hematocrit 34.8 % (37.0-47.0); Hemoglobin 11.9 g/dL (12.0-15.0); Mean Corpuscular HGB Conc 34.2 g/dl (32-36); Mean Corpuscular Hemoglobin 30.4 pg (26-34); Mean Corpuscular Volume 88.8 fl (80-100); Mean Platelet Volume 9.6 fl (7.4-10.4); Platelet Count Result 235 k/mm3 (150-375); Red Blood Count 3.92 M/mm3 (4.2-5.4); Red Cell Distribution Width 14.1 % (11.5-14.5)
[2022-12-17 05:20] LABS: Alanine Aminotransferase 57 U/L (6-35); Albumin Level 3.7 g/dL (3.5-5.1); Alkaline Phosphatase 148 U/L (38-126); Anion Gap 6 mmol/L (8-16); Aspartate Amino Transferase 63 U/L (14-36); Bilirubin,Total 0.9 mg/dL (0.2-1.3); Blood Urea Nitrogen 26 mg/dL (7-17); Calcium 8.4 mg/dL (8.4-10.2); Carbon Dioxide 31 mmol/L (22-30); Chloride 101 mmol/L (98-107); Estimated CRCL calculation 53 ml/min; Estimated Glomerular Filt Rate 43; Glucose 188 mg/dL (65-110); Magnesium 2.7 mg/dL (1.6-2.3); Phosphorus 2.8 mg/dL (2.5-4.5); Potassium 3.2 mmol/L (3.4-5.0); Sodium 138 mmol/L (137-145)
[2022-12-17 05:26] LABS: Alveolar/Arterial O2 Gradient 123.8 mmHg; Base Excess ABG 4.5 mEq/l (+/-2.0); Carboxyhemoglobin 0.3 % THb (0-2.0); Fractional Inspired Oxygen 35 %; HCO3 ABG 29.7 mEq/l (22.0-26.0); Methemoglobin ABG 0.5 %THb (0-1.5); Oxygen Content ABG 25.5 %vol (16.0-22.0); Oxygen Saturation ABG 95.2 % (95.0-100.0); Oxyhemoglobin 93.7 % THb (90.0-100.0); PO2 ABG 73.4 mmHg (80.0-100.0); Reduced Hemoglobin 5.5 %THb (0-5.0); Total Hemoglobin 19.4 g/dL (12.0-18.0); pH ABG 7.437 (7.350-7.450)
[2022-12-17 05:29] LABS: Device VENTILATOR; Modified Allen's Test Pass; Site Drawn LEFT RADIAL
[2022-12-17 05:30] LABS: Arterial Blood Gas PEEP 5 cmH2O; Arterial Blood Gas Vent Mode PRESSURE CONTROL; Arterial Blood Gas Ventilator rate 22 /MIN; Peak Inspiratory Pressure 24 cmH2O
[2022-12-17 06:16] LABS: Glucose Point of Care 186 mg/dl (65-105)
[2022-12-17 06:16] LABS: Glucose Point of Care 179 mg/dl (65-105)
[2022-12-17 06:16] LABS: Glucose Point of Care 218 mg/dl (65-105)
[2022-12-17 06:16] LABS: Glucose Point of Care 202 mg/dl (65-105)
[2022-12-17 06:16] LABS: Glucose Point of Care 204 mg/dl (65-105)
[2022-12-17 06:16] LABS: Glucose Point of Care 183 mg/dl (65-105)
[2022-12-17] MEDS: CENTRAL LINE FLUSH 10 ML IV PUSH ×4 (06:19→20:11)
[2022-12-17 08:04] LABS: Hemoglobin 11.2 g/dL (12.0-15.0); Mean Corpuscular HGB Conc 33.9 g/dl (32-36); Mean Corpuscular Hemoglobin 30.8 pg (26-34); Mean Corpuscular Volume 90.7 fl (80-100); Mean Platelet Volume 9.3 fl (7.4-10.4); Platelet Count Result 214 k/mm3 (150-375); Red Blood Count 3.64 M/mm3 (4.2-5.4); Red Cell Distribution Width 14.3 % (11.5-14.5); White Blood Count 20.1 K/mm3 (4.5-10.0)
[2022-12-17 08:06] LABS: Glucose Point of Care 177 mg/dl (65-105)
[2022-12-17 08:13] LABS: Creatine Kinase 497 U/L (30-135)
[2022-12-17 08:14] LABS: INR 1.1; Prothrombin Time 15.1 Seconds (11.1-14.7)
[2022-12-17] MEDS: MINERAL OIL/WHITE PETROLATUM OINTMENT 1 APPLIC EACH EYE ×2 (08:14→20:11)
[2022-12-17] MEDS: methylPREDNISolone SOD SUCC 125 MG VIAL 60 MG IV PUSH (08:14)
[2022-12-17] MEDS: PANTOPRAZOLE SODIUM IV 40 MG VIAL IV PUSH ×2 (08:14→20:11)
[2022-12-17] MEDS: KCL 40 MEQ/WATER 100 ML 100 ML 25 ML IVPB (08:14)
[2022-12-17 08:15] LABS: Partial Thromboplastin Time 33.7 SECONDS (22.3-36.8)
[2022-12-17] MEDS: FENTANYL 2,500MCG/NS250ML(*CRX 2,500 MCG/250 ML BAG 20 MCG IV CONT ×2 (08:45→22:18)
[2022-12-17 09:06] LABS: Glucose Point of Care 192 mg/dl (65-105)
[2022-12-17 09:49] LABS: Alveolar/Arterial O2 Gradient 128.6 mmHg; Arterial Blood Gas PEEP 5 cmH2O; Arterial Blood Gas Tidal Volume 400 ml; Arterial Blood Gas Vent Mode CMV; Arterial Blood Gas Ventilator rate 20 /MIN; Device VENTILATOR; Fractional Inspired Oxygen 35 %; HCO3 ABG 27.4 mEq/l (22.0-26.0); Modified Allen's Test Pass; Oxygen Content ABG 17.5 %vol (16.0-22.0); Oxygen Saturation ABG 95.2 % (95.0-100.0); Oxyhemoglobin 93.5 % THb (90.0-100.0); PCO2 ABG 41.1 mmHg (35.0-45.0); PO2 ABG 73.2 mmHg (80.0-100.0); PO2 FiO2 Ratio Arterial Blood 2.09 %; Site Drawn RIGHT RADIAL; Total Hemoglobin 13.3 g/dL (12.0-18.0); pH ABG 7.442 (7.350-7.450)
--- NOTE | 2022-12-17 09:53 | WPDINTPN ---
Progress Note: A&P Assessment and Plan (1) Acute respiratory failure: Code(s): J96.00 - Acute respiratory failure, unspecified whether with hypoxia or hypercapnia Status: Acute Assessment and Plan: Acute Respiratory failure secondary to cardiac arrest, pulmonary edema, aspiration pneumonia patient also has baseline COPD -intubated on 12/16/2022 Continue full mechanical ventilation support to prevent hypoxemia/hypercarbia and end organ damage. -chest x-ray and ABGs reviewed, ventilator adjusted 12/16: Blood cultures pending 12/16: Urine cultures pending 12/16: sputum cultures have been ordered Continue empiric Zosyn for aspiration pneumonia (12/16) Low tidal volume ventilation strategy to prevent volutrauma Continue bronchodilators -sedated with fentanyl, Versed infusion. Patient also on neuromuscular blockade with Nimbex for shivering and ventilator synchrony CTA lung was negative for PE and showed 1. Bilateral interstitial changes of the lungs with interlobular septal thickening, patchy groundglass opacities, compatible with edema. Focal consolidation of the lower lobes is suspicious for superimposed pneumonia. Consider aspiration. (2) Cardiac arrest: Code(s): I46.9 - Cardiac arrest, cause unspecified Status: Acute Assessment and Plan: Patient had a PEA cardiac arrest which is likely secondary to respiratory failure as patient was short of breath and in respiratory distress for a while to collapsing. CT confirmed pulmonary edema and aspiration pneumonia. Negative for PE - On admission Patient received dose of Lasix with good urine output and improvement in her chest x-ray -troponins have plateaued, cardiac arrest not probably related to cardiac event more so a respiratory event -cardiology following, no specific cardiac recommendations at this time. 12/16/2022 echocardiogram: Showed EF of 60-65%, LV septal wall motion is abnormal with septal motion related to bundle branch block, RV systolic function is normal, no evaluate the dysfunction (3) CKD (chronic kidney disease): Code(s): N18.9 - Chronic kidney disease, unspecified Status: Acute Assessment and Plan: Patient has history of chronic kidney disease with a baseline creatinine is unknown - obtain records from [facility] Monitor urine output electrolytes and creatinine (4) Congestive heart failure: Code(s): I50.9 - Heart failure, unspecified Status: Acute Assessment and Plan: Patient has history of congestive heart failure but details unknown Echo as above -may require p.r.n. Lasix (5) Diabetes mellitus: Code(s): E11.9 - Type 2 diabetes mellitus without complications Status: Acute Assessment and Plan: Continue sliding scale insulin at this time (6) Pulmonary edema: Code(s): J81.1 - Chronic pulmonary edema Status: Acute Assessment and Plan: See above (7) Anoxic brain injury: Code(s): G93.1 - Anoxic brain damage, not elsewhere classified Status: Acute Assessment and Plan: Patient has sustained anoxic brain injury. She was completely comatose after resuscitation Her pupils are slightly unequal but reactive light. She still over breathe the ventilator Head CT was negative on presentation Patient has been started on TTM protocol which will be continued Continue Nimbex infusion due to shivering and vent synchrony EEG once patient is re-warmed (8) Aspiration pneumonia: Code(s): J69.0 - Pneumonitis due to inhalation of food and vomit Status: Acute Assessment and Plan: See above (9) Anemia: Code(s): D64.9 - Anemia, unspecified Status: Acute Assessment and Plan: Patient presented with hemoglobin of 6.1. No history available of GI bleeding. Not on any anti coag Check stool occult Transfusion of 2 units of PRBC has been ordered but patient has antibiotics and transfusion has been d
[2022-12-17 10:04] LABS: Glucose Point of Care 183 mg/dl (65-105)
--- NOTE | 2022-12-17 10:31 | PM.PNCARD ---
Progress Note: A&P Assessment and Plan (1) Cardiac arrest: Code(s): I46.9 - Cardiac arrest, cause unspecified Status: Acute (2) Acute respiratory failure: Code(s): J96.00 - Acute respiratory failure, unspecified whether with hypoxia or hypercapnia Status: Acute (3) Anoxic brain injury: Code(s): G93.1 - Anoxic brain damage, not elsewhere classified Status: Acute (4) Pulmonary edema: Code(s): J81.1 - Chronic pulmonary edema Status: Acute (5) Congestive heart failure: Code(s): I50.9 - Heart failure, unspecified Status: Acute Plan Patient presented after PEA cardiac arrest which appears to be most likely 2/2 respiratory failure. Concern for anoxic brain injury as patient was noted to be completely comatose after resuscitation. She is currently intubated on mechanical ventilation and being cooled as per the cooling protocol. EKG on admission showed sinus rhythm with transient accelerated junctional rhythm, telemetry this morning shows sinus rhythm. Repeat EKGs with sinus rhythm without arrhythmia. Echocardiogram reviewed - EF is preserved with no significant valvular disease. CXR and CT with pulmonary edema on admission which significantly improved with intermittent IV Lasix. Continue with intermittent IV Lasix as needed. Recommend ASA 81mg once daily if no bleeding issues. Resume home statin when appropriate - currently has elevated liver enzymes. At this time, no other specific cardiac recommendations, will continue to follow along and see how she recovers. Of note, patient sees [facility] - to follow up with them after hospital discharge. Subjective Date/time seen: 12/17/22 10:31 Interval history: Reason for visit: Cardiac arrest HPI: We are consulted for cardiac arrest. Patient is a 52-year-old female with a reported history of congestive heart failure, COPD, smoking, diabetes, anxiety, degenerative joint disease, depression, chronic kidney disease who presented with cardiac arrest. Patient is currently intubated, therefore, all history obtained from the patient's electronic medical record and her medical team. Patient was with her friend yesterday and they were out to play pool and then patient started feeling short of breath. Decided to return home in the car, and patient had stated she could not breathe. Patient then went down and friend called 911. On instruction of 911, friend started doing CPR. When EMS arrived, patient had GCS of 3 and was laying on the side of the road. No CPR was being performed at that time. Patient noted to have agonal breathing and was cyanotic. Patient noted to have weak pulses. Patient noted to be bradycardic with HR in the 20s. Patient intubated, with improvement in heart rate, but then lost pulses, and CPR was started. Patient given Narcan and Epinephrine. In the ED, Hgb noted to be 6, given blood transfusion. Admitted to the ICU. Cooling protocol initiated as patient unresponsive after ROSC obtained. EKG showed sinus rhythm with transient accelerated junctional rhythm, incomplete RBBB. Echocardiogram done today and shows LVEF 60-65%, mild MR, mild TR. WBC 24.8, Cr 1.5, lactate WNL, initial troponin 0.210 and then repeat negative, BNP elevated at 306. CT C/A/P shows bilateral interstitial changes of the lungs with interlobular septal thickening, patchy groundglass opacities, compatible with edema. Possible superimposed pneumonia. Adynamic ileus. Telemetry with sinus rhythm this morning. Date of service 12/17: No acute events overnight. Remains intubated. Rewarming phase of hypothermia protocol to start later this morning. Review of Systems Review of Systems: ROS unobtainable: Yes unobtainable due to endotracheal tube and unobtainable due to medical condition Exam Const: Other: Critically ill female on mechanical intubation via OETT. Being cooled. HENMT: Other: OETT in place Neck: Neck: supple Resp:
[2022-12-17 11:11] LABS: Glucose Point of Care 166 mg/dl (65-105)
--- NOTE | 2022-12-17 11:51 | PCFNICU ---
ICU Rounding Note: Pt current nutrition is NPO. Nutrition recommendation: Vital AF 1.2 at 20 ml/hr advance by 10 ml q 4 hours to goal rate of 60 ml/hr. Last recorded weight is 93.9 kg. Bowel Motility:No BM reported. Labs Reviewed:Mg 2.7,K 3.2,GFR 43,Cr 1.3, Glu 188 Meds Noted:Versed, Fentanyl, Protonix, Nimbex, Solu Medrol Skin: WNL Additional Notes: Patient remains on mechanical vent. Hypothermia protocol. No plans for nutrition today. Following daily in ICU rounds and will reassess every Wednesday and Wednesday.
[2022-12-17 12:24] LABS: Glucose Point of Care 176 mg/dl (65-105)
[2022-12-17 13:03] LABS: Glucose Point of Care 174 mg/dl (65-105)
[2022-12-17 13:22] LABS: Lactic Acid Reflex 0.9 mmol/L (0.7-2.0)
[2022-12-17 13:24] LABS: Creatine Kinase 442 U/L (30-135)
[2022-12-17 14:16] LABS: Glucose Point of Care 173 mg/dl (65-105)
[2022-12-17 15:07] LABS: Glucose Point of Care 157 mg/dl (65-105)
[2022-12-17 16:08] LABS: Glucose Point of Care 157 mg/dl (65-105)
[2022-12-17 17:15] LABS: Glucose Point of Care 134 mg/dl (65-105)
[2022-12-17 17:21] LABS: Glucose Point of Care 161 mg/dl (65-105)
--- NOTE | 2022-12-17 18:01 | WPDPN ---
Progress Note: A&P Assessment and Plan (1) Cardiac arrest: Code(s): I46.9 - Cardiac arrest, cause unspecified Status: Acute Assessment and Plan: Patient is currently intubated unable to provide any review of symptoms or history, history is as recorded from reviewing electronic charts 12/17/2022 interval history: Patient is a 52-year-old with history of chronic respiratory failure with COPD on 2 L oxygen at home apparently patient was out with her friend and developed shortness of breath on her way home, 911 was called patient was in cardiac arrest and EMS instructed patient's friend start the CPR, and upon arrival of EMS patient was bradycardic and hypoxic patient was intubated patient was brought to the emergency depart, patient was hypothermic was placed on Silvino Hugger, patient still somnolent and not following commands, discussed with intensive prognosis is guarded, patient temperature is rising and her vitals are improving currently patient is in ICU seen by associate account executive and casting technician will continue to monitor. (2) Aspiration pneumonia: Code(s): J69.0 - Pneumonitis due to inhalation of food and vomit Status: Acute Assessment and Plan: Patient is being treated with Zosyn will continue to monitor (3) Anoxic brain injury: Code(s): G93.1 - Anoxic brain damage, not elsewhere classified Status: Acute Assessment and Plan: Patient was hypoxic in the feet and cardiac arrest most likely patient has anoxic brain injury seen by casting technician and associate account executive (4) Anemia: Code(s): D64.9 - Anemia, unspecified Status: Acute Assessment and Plan: Will monitor hemoglobin and further recommendation to follow (5) Electrolyte imbalance: Code(s): E87.8 - Other disorders of electrolyte and fluid balance, not elsewhere classified Status: Acute Assessment and Plan: Will monitor electrolytes and supplement as needed Subjective Date/time seen: 12/17/22 18:01 Interval history: Patient is currently intubated unable to provide any review of symptoms or history, history is as recorded from reviewing electronic charts 12/17/2022 interval history: Patient is a 52-year-old with history of chronic respiratory failure with COPD on 2 L oxygen at home apparently patient was out with her friend and developed shortness of breath on her way home, 911 was called patient was in cardiac arrest and EMS instructed patient's friend start the CPR, and upon arrival of EMS patient was bradycardic and hypoxic patient was intubated patient was brought to the emergency depart, patient was hypothermic was placed on Silvino Hugger, patient still somnolent and not following commands, discussed with intensive prognosis is guarded, patient temperature is rising and her vitals are improving currently patient is in ICU seen by associate account executive and casting technician will continue to monitor. Exam Narrative: Patient is comfortable, NAD HEENT: ET tube in place LUNGS: Normal respiratory effort ABD: Distended Lower extremities: no edema SKIN: nonjaundiced Neuro: grossly intact. Objective Data Vital Signs Vital Signs: Vital Signs - 24 hr 12/16/22 20:13 12/16/22 20:14 12/16/22 20:34 Temperature Pulse Rate 77 77 78 Respiratory Rate 20 20 Blood Pressure Pulse Oximetry 94 Oxygen Delivery Mechanical Ventilation Fraction of Inspired Oxygen 35 12/16/22 19:00 12/16/22 20:00 12/16/22 20:00 Temperature 90 F L 91 F L Pulse Rate 90 78 78 Respiratory Rate 22 H 22 H 20 Blood Pressure 104/63 104/66 Pulse Oximetry 92 93 94 Oxygen Delivery Mechanical Ventilation Fraction of Inspired Oxygen 35 12/16/22 20:00 12/16/22 21:00 12/16/22 22:20 Temperature 92.6 F L Pulse Rate 82 83 72 Respiratory Rate 22 H 22 H Blood Pressure 131/74 Pulse Oximetry 97 Oxygen Delivery Fraction of Inspired Oxygen 12/16/22 22:20 12/16/22 22:00 12/16/22 22:00 Temperature 9
[2022-12-17 18:08] LABS: Glucose Point of Care 151 mg/dl (65-105)
[2022-12-17 20:08] LABS: Glucose Point of Care 124 mg/dl (65-105)
[2022-12-17] MEDS: METOPROLOL TARTRATE 50 MG TAB PO (20:10)
[2022-12-17 20:13] LABS: Hematocrit 34.6 % (37.0-47.0); Hemoglobin 11.5 g/dL (12.0-15.0); Mean Corpuscular HGB Conc 33.2 g/dl (32-36); Mean Corpuscular Hemoglobin 30.6 pg (26-34); Mean Platelet Volume 9.6 fl (7.4-10.4); Platelet Count Result 275 k/mm3 (150-375); Red Blood Count 3.76 M/mm3 (4.2-5.4); Red Cell Distribution Width 14.6 % (11.5-14.5)
[2022-12-17 20:24] LABS: Alanine Aminotransferase 52 U/L (6-35); Albumin Level 3.5 g/dL (3.5-5.1); Alkaline Phosphatase 118 U/L (38-126); Anion Gap 5 mmol/L (8-16); Aspartate Amino Transferase 52 U/L (14-36); Bilirubin,Total 0.8 mg/dL (0.2-1.3); Blood Urea Nitrogen 32 mg/dL (7-17); Calcium 8.2 mg/dL (8.4-10.2); Carbon Dioxide 30 mmol/L (22-30); Chloride 102 mmol/L (98-107); Estimated CRCL calculation 41 ml/min; Estimated Glomerular Filt Rate 32; Glucose 144 mg/dL (65-110); Potassium 4.8 mmol/L (3.4-5.0); Sodium 137 mmol/L (137-145)
[2022-12-17 20:25] LABS: INR 1.2; Partial Thromboplastin Time 29.8 SECONDS (22.3-36.8); Prothrombin Time 15.3 Seconds (11.1-14.7)
[2022-12-18] VITALS (119 sets, daily range): BP systolic 103–147; BP diastolic 54–78; PULSE 74–119; RESP 0–31; TEMP 36.9–38.2; O2SAT 62–100; BMI 33.4
[2022-12-18 00:48] LABS: Glucose Point of Care 90 mg/dl (65-105)
[2022-12-18] MEDS: PIPERACILLIN/TAZOBACTAM SOD 4.5 GM in SODIUM CHLORIDE 0.9% IV 100 ML 200 ML IVPB ×2 (00:48→06:10)
[2022-12-18] MEDS: SODIUM CHLORIDE 0.9% IV 500 ML IV CONT (01:26)
[2022-12-18] MEDS: MIDAZOLAM 100MG/NS 100ML(*CRX) 100 MG/100 ML BAG 8 MG IV CONT (02:01)
[2022-12-18] MEDS: DEXTROSE 5%/0.9% SOD CHL 1,000 ML 50 ML IV CONT ×2 (02:02→21:24)
[2022-12-18] MEDS: IPRATROPIUM BR 0.02% INH SOLN 0.5 MG/2.5 ML VIAL INHALATION ×4 (02:47→20:50)
[2022-12-18] MEDS: ALBUTEROL SULFATE NEB 2.5 MG/3 ML INH INHALATION ×3 (02:47→20:50)
[2022-12-18 04:38] LABS: Glucose Point of Care 114 mg/dl (65-105)
[2022-12-18 05:14] LABS: Hematocrit 33.6 % (37.0-47.0); Hemoglobin 11.2 g/dL (12.0-15.0); Mean Corpuscular HGB Conc 33.3 g/dl (32-36); Mean Corpuscular Hemoglobin 30.5 pg (26-34); Mean Corpuscular Volume 91.6 fl (80-100); Mean Platelet Volume 9.8 fl (7.4-10.4); Platelet Count Result 292 k/mm3 (150-375); Red Blood Count 3.67 M/mm3 (4.2-5.4); Red Cell Distribution Width 14.7 % (11.5-14.5); White Blood Count 39.5 K/mm3 (4.5-10.0)
[2022-12-18 05:21] LABS: Alveolar/Arterial O2 Gradient 115.4 mmHg; Arterial Blood Gas PEEP 5 cmH2O; Arterial Blood Gas Tidal Volume 400 ml; Arterial Blood Gas Vent Mode CMV; Arterial Blood Gas Ventilator rate 20 /MIN; Base Excess ABG 1.5 mEq/l (+/-2.0); Carboxyhemoglobin 0.3 % THb (0-2.0); Device VENTILATOR; Fractional Inspired Oxygen 35 %; HCO3 ABG 27.5 mEq/l (22.0-26.0); Methemoglobin ABG 0.3 %THb (0-1.5); Modified Allen's Test Pass; Oxygen Content ABG 15.3 %vol (16.0-22.0); Oxygen Saturation ABG 94.6 % (95.0-100.0); Oxyhemoglobin 93.4 % THb (90.0-100.0); PO2 FiO2 Ratio Arterial Blood 2.17 %; Site Drawn LEFT RADIAL; Total Hemoglobin 11.6 g/dL (12.0-18.0); pH ABG 7.359 (7.350-7.450)
[2022-12-18 05:24] LABS: Alanine Aminotransferase 51 U/L (6-35); Albumin Level 3.6 g/dL (3.5-5.1); Alkaline Phosphatase 125 U/L (38-126); Anion Gap 5 mmol/L (8-16); Aspartate Amino Transferase 57 U/L (14-36); Bilirubin,Total 0.7 mg/dL (0.2-1.3); Blood Urea Nitrogen 33 mg/dL (7-17); Calcium 8.2 mg/dL (8.4-10.2); Carbon Dioxide 30 mmol/L (22-30); Chloride 103 mmol/L (98-107); Estimated CRCL calculation 33 ml/min; Estimated Glomerular Filt Rate 25; Glucose 130 mg/dL (65-110); Magnesium 2.6 mg/dL (1.6-2.3); Phosphorus 5.8 mg/dL (2.5-4.5); Potassium 5.4 mmol/L (3.4-5.0); Sodium 138 mmol/L (137-145)
[2022-12-18] MEDS: SODIUM POLYSTYRENE SULFONONATE 15 GM/60 ML BTL 30 GM PO (08:04)
[2022-12-18] MEDS: SODIUM CHLORIDE 0.9% IV 1,000 ML 999 ML IV CONT (08:04)
[2022-12-18] MEDS: DEXTROSE 50% 25 GM/50 ML SYRINGE IV PUSH (08:09)
[2022-12-18] MEDS: INSULIN HUMAN REGULAR (*BKC) 100 UNITS/ML 10 UNITS IV PUSH (08:10)
[2022-12-18] MEDS: MINERAL OIL/WHITE PETROLATUM OINTMENT 1 APPLIC EACH EYE ×2 (08:11→21:21)
[2022-12-18] MEDS: VANCOMYCIN 1,250 MG/NS 250 ML 1,250 MG/250 ML BAG 166.67 MG IVPB (08:11)
[2022-12-18] MEDS: METOPROLOL TARTRATE 50 MG TAB PO ×2 (08:12→21:23)
[2022-12-18] MEDS: methylPREDNISolone SOD SUCC 125 MG VIAL 60 MG IV PUSH (08:12)
[2022-12-18] MEDS: PANTOPRAZOLE SODIUM IV 40 MG VIAL IV PUSH ×2 (08:12→21:23)
[2022-12-18] MEDS: CENTRAL LINE FLUSH 10 ML IV PUSH ×4 (08:13→21:24)
[2022-12-18] MEDS: ALBUTEROL SULFATE NEB 2.5 MG/3 ML INH 10 MG INHALATION (08:29)
[2022-12-18 08:30] LABS: Glucose Point of Care 93 mg/dl (65-105)
[2022-12-18] MEDS: VANCOMYCIN 1,000 MG/NS 250 ML 1,000 MG/250 ML BAG 250 MG IVPB (09:20)
[2022-12-18 09:45] LABS: Anion Gap 5 mmol/L (8-16); Blood Urea Nitrogen 33 mg/dL (7-17); Calcium 7.5 mg/dL (8.4-10.2); Carbon Dioxide 27 mmol/L (22-30); Chloride 109 mmol/L (98-107); Estimated CRCL calculation 32 ml/min; Estimated Glomerular Filt Rate 24; Glucose 86 mg/dL (65-110); Potassium 4.1 mmol/L (3.4-5.0); Sodium 141 mmol/L (137-145)
--- NOTE | 2022-12-18 10:12 | P.CDI_ITS ---
CDI Query Clarification Request Documented history of CHF. CHF noted on the assessment and plan. Elevated BNP on 12/16/22 lab work. Furosemide listed as a home medication. Please specify type and acuity of heart failure if known. * Acute * Chronic * Acute on Chronic * Unknown * Systolic * Diastolic * Combined Systolic and Diastolic * Unknown <Ne Yarbrough RN - Last Filed: 12/18/22 10:16> Clarified Diagnosis Clarified Diagnosis: Upon arrival patient was volume overload and diuresed however patient cardiac echo is essentially normal unable to determine etiology of CHF <Eufemia Davila MD - Last Filed: 12/20/22 16:03>
--- NOTE | 2022-12-18 11:12 | PCNFU ---
Nutrition Follow-Up Complete: Inadequate Oral Intake as related to mechanical ventilation as evidenced by NPO. Goal: Meet estimated nutritional needs - Progressing toward goal with trickle feeding Pt current nutrition is NPO. Nutrition recommendation: Initiate trickle feeding of Nepro @ 20 ml/h. Flush 30 ml q 4 h. Last recorded weight is 93.9 kg. Bowel Motility: No BMs yet Labs Reviewed: Hgb 11.2, Hct 33.6, K+ 5.4, BUN 33, Cre 2.1, Glu 114, Mag 2.6 Meds Noted: Versed, Zosyn, vanco, protonix, solumedrol, fentanyl Skin: WNL Additional Notes: Continues on mechanical ventilation day 2. Goal rate: Nepro @ 45 ml/h for 1782 kcals, 80 g protein, 719 ml free water + Prosource x1 daily for total 1862 kcal, 100 g protein. Will reassess every Wednesday and Wednesday.
--- NOTE | 2022-12-18 11:54 | WPDINTPN ---
Progress Note: A&P Assessment and Plan (1) Acute respiratory failure: Code(s): J96.00 - Acute respiratory failure, unspecified whether with hypoxia or hypercapnia Status: Acute Assessment and Plan: Acute Respiratory failure secondary to cardiac arrest, pulmonary edema, aspiration pneumonia patient also has baseline COPD -intubated on 12/16/2022 Continue full mechanical ventilation support to prevent hypoxemia/hypercarbia and end organ damage. -chest x-ray and ABGs reviewed, ventilator adjusted -thick alonzo secretions from a ETT 12/16: Blood cultures , preliminary results with no growth x2 12/16: Urine cultures no growth 12/16: sputum cultures obtained and pending Continue empiric Zosyn for aspiration pneumonia (12/16), added vancomycin on 12/18 Low tidal volume ventilation strategy to prevent volutrauma Continue bronchodilators -sedated with fentanyl, Versed infusion. Off Nimbex infusion. -have asked bedside RN to start weaning sedation to off to evaluate patient's neurological status CTA lung was negative for PE and showed 1. Bilateral interstitial changes of the lungs with interlobular septal thickening, patchy groundglass opacities, compatible with edema. Focal consolidation of the lower lobes is suspicious for superimposed pneumonia. Consider aspiration. (2) Cardiac arrest: Code(s): I46.9 - Cardiac arrest, cause unspecified Status: Acute Assessment and Plan: Patient had a PEA cardiac arrest which is likely secondary to respiratory failure as patient was short of breath and in respiratory distress for a while to collapsing. CT confirmed pulmonary edema and aspiration pneumonia. Negative for PE - On admission Patient received dose of Lasix with good urine output and improvement in her chest x-ray -will consult neurology, patient may require EEG -troponins have plateaued, cardiac arrest not probably related to cardiac event more so a respiratory event -cardiology following, no specific cardiac recommendations at this time. 12/16/2022 echocardiogram: Showed EF of 60-65%, LV septal wall motion is abnormal with septal motion related to bundle branch block, RV systolic function is normal, no evaluate the dysfunction (3) CKD (chronic kidney disease): Code(s): N18.9 - Chronic kidney disease, unspecified Status: Acute Assessment and Plan: Patient has history of chronic kidney disease with a baseline creatinine is unknown - obtain records from [facility] -12/18: Decreased urine output, worsening renal function -check renal ultrasound -urine lytes, urine eosinophils and CPK level -Nephrology will be consulted -will give gentle IV fluid hydration Monitor urine output electrolytes and creatinine (4) Congestive heart failure: Code(s): I50.9 - Heart failure, unspecified Status: Acute Assessment and Plan: Patient has history of congestive heart failure but details unknown Echo as above -may require p.r.n. Lasix (5) Diabetes mellitus: Code(s): E11.9 - Type 2 diabetes mellitus without complications Status: Acute Assessment and Plan: Continue sliding scale insulin at this time (6) Pulmonary edema: Code(s): J81.1 - Chronic pulmonary edema Status: Acute Assessment and Plan: See above (7) Anoxic brain injury: Code(s): G93.1 - Anoxic brain damage, not elsewhere classified Status: Acute Assessment and Plan: Patient has sustained anoxic brain injury. She was completely comatose after resuscitation Her pupils are slightly unequal but reactive light. She still over breathe the ventilator Head CT was negative on presentation Patient has been started on TTM protocol which will be continued Continue Nimbex infusion due to shivering and vent synchrony Neurology consult and EEG once patient is re-warmed (8) Aspiration pneumonia: Code(s): J69.0 - Pneumonitis due to inhalation of food and vo
[2022-12-18 12:02] LABS: Glucose Point of Care 82 mg/dl (65-105)
--- NOTE | 2022-12-18 12:15 | P.CONNP_ITS ---
Assessment and Plan Assessment and plan (1) LIZETTE (acute kidney injury): Code(s): N17.9 - Acute kidney failure, unspecified Status: Acute Assessment and Plan: * unclear on what baseline creatinine is... * records request in progress * creatinine 1.3mg/dl and has worsened in the last 24 - 48 hours * noted decline in UOP as well * suspect mutifactorial etiology * PEA arrest * diuretic/ARB/metformin use INSPECTION SUPERVISOR * contrast exposure (CTA on 12/16/22) * use of IV diuretics on admission * infection (possible pneumonia) * follow-up on renal ultrasound and urine studies * follow trend of repeat las and UOP (2) CKD (chronic kidney disease): Code(s): N18.9 - Chronic kidney disease, unspecified Status: Chronic Assessment and Plan: * reported history but specifics are unclear * record request in progress * presumably due to HTN, DM, and possible CHF * outpatient medications (calcitriol and sodium bicarbonate) argue she was being followed by outpatient nephrology (3) Acute respiratory failure: Code(s): J96.00 - Acute respiratory failure, unspecified whether with hypoxia or hypercapnia Status: Acute Assessment and Plan: * secondary to cardiac arrest and complicated by pulmonary edema and aspiration pneumonia by recent imaging along with baseline COPD * on ventilator support * on antibiotics for aspiration pneumonia * weaning depends on improvement in mental status (concern for anoxic brain injury noted) (4) Cardiac arrest: Code(s): I46.9 - Cardiac arrest, cause unspecified Status: Acute Assessment and Plan: * PEA * likely secondary to respiratory failure * no PE by CTA of chest * Echo results noted * Cardiology following (5) Aspiration pneumonia: Code(s): J69.0 - Pneumonitis due to inhalation of food and vomit Status: Acute Assessment and Plan: * on empiric antibiotic therapy * follow culture data * respiratory/ventilator support (6) Anemia: Code(s): D64.9 - Anemia, unspecified Status: Acute Assessment and Plan: * admission Hgb 6.1 * PRBC transfusion per protocol * follow H/H * consider empiric Epogen (7) Diabetes mellitus: Code(s): E11.9 - Type 2 diabetes mellitus without complications Status: Chronic Assessment and Plan: * follow accuchecks * glycemic control per greeter guest services I will continue to follow the patient with you while she remains hospitalized to make further recommendations during her hospital course. Thank you for allowing me to participate in the care this patient. History of Present Illness Reason for Consult Consult date: 12/18/22 Reason for consult: acute renal failure (on chronic kidney disease??) Chief Complaint Chief complaint: resp failure History of Present Illness Narrative: All the information that I have obtained is from review of the electronic medical record as well as discussion with the physician/ nurses involved in the patient's care as the patient is unable to provide me with any history as she is currently intubated and on mechanical ventilation. The patient is a 52-year-old female with a past medical history as outlined below who presented to [facility] Emergency room status post cardiac arrest. On the day of presentation, the patient was out with her friends when she suddenly developed worsening shortness of breath. She decided to go home and rest but apparently, her shortness of breath acutely worsened and she stated
--- NOTE | 2022-12-18 12:15 | PM.CNNEP ---
Assessment and Plan Assessment and plan (1) LIZETTE (acute kidney injury): Code(s): N17.9 - Acute kidney failure, unspecified Status: Acute Assessment and Plan: unclear on what baseline creatinine is... records request in progress creatinine 1.3mg/dl and has worsened in the last 24 - 48 hours noted decline in UOP as well suspect mutifactorial etiology PEA arrest diuretic/ARB/metformin use ORACLE APPLICATIONS DEVELOPER contrast exposure (CTA on 12/16/22) use of IV diuretics on admission infection (possible pneumonia) follow-up on renal ultrasound and urine studies follow trend of repeat las and UOP (2) CKD (chronic kidney disease): Code(s): N18.9 - Chronic kidney disease, unspecified Status: Chronic Assessment and Plan: reported history but specifics are unclear record request in progress presumably due to HTN, DM, and possible CHF outpatient medications (calcitriol and sodium bicarbonate) argue she was being followed by outpatient nephrology (3) Acute respiratory failure: Code(s): J96.00 - Acute respiratory failure, unspecified whether with hypoxia or hypercapnia Status: Acute Assessment and Plan: secondary to cardiac arrest and complicated by pulmonary edema and aspiration pneumonia by recent imaging along with baseline COPD on ventilator support on antibiotics for aspiration pneumonia weaning depends on improvement in mental status (concern for anoxic brain injury noted) (4) Cardiac arrest: Code(s): I46.9 - Cardiac arrest, cause unspecified Status: Acute Assessment and Plan: PEA likely secondary to respiratory failure no PE by CTA of chest Echo results noted Cardiology following (5) Aspiration pneumonia: Code(s): J69.0 - Pneumonitis due to inhalation of food and vomit Status: Acute Assessment and Plan: on empiric antibiotic therapy follow culture data respiratory/ventilator support (6) Anemia: Code(s): D64.9 - Anemia, unspecified Status: Acute Assessment and Plan: admission Hgb 6.1 PRBC transfusion per protocol follow H/H consider empiric Epogen (7) Diabetes mellitus: Code(s): E11.9 - Type 2 diabetes mellitus without complications Status: Chronic Assessment and Plan: follow accuchecks glycemic control per commercial credit portfolio manager I will continue to follow the patient with you while she remains hospitalized to make further recommendations during her hospital course. Thank you for allowing me to participate in the care this patient. History of Present Illness Reason for Consult Consult date: 12/18/22 Reason for consult: acute renal failure (on chronic kidney disease??) Chief Complaint Chief complaint: resp failure History of Present Illness Narrative: All the information that I have obtained is from review of the electronic medical record as well as discussion with the physician/ nurses involved in the patient's care as the patient is unable to provide me with any history as she is currently intubated and on mechanical ventilation. The patient is a 52-year-old female with a past medical history as outlined below who presented to [facility] Emergency room status post cardiac arrest. On the day of presentation, the patient was out with her friends when she suddenly developed worsening shortness of breath. She decided to go home and rest but apparently, her shortness of breath acutely worsened and she stated that she could not breathe. The patient apparently collapsed and her friend called 911. On instructions by the skip operator, the friend apparently initiated CPR. EMS took over on their arrival and she was transferred to the emergency room for further assessment. By the time of her arrival to the emergency room, the patient was being ventilated by an Ambu bag and she reportedly had weak pulses. She is noted to be significantly bradycardic as well and given her al
[2022-12-18] MEDS: PIPERACILLN/TAZ 3.375GM/NS50ML 3.375 GM/50 ML BAG IVPB ×2 (12:16→17:07)
[2022-12-18 12:17] LABS: Creatine Kinase 238 U/L (30-135)
--- NOTE | 2022-12-18 14:03 | WPDNEURCNPN ---
Assessment and Plan Assessment and plan (1) Anoxic brain injury: Code(s): G93.1 - Anoxic brain damage, not elsewhere classified Status: Acute (2) Cardiac arrest: Code(s): I46.9 - Cardiac arrest, cause unspecified Status: Acute (3) Aspiration pneumonia: Code(s): J69.0 - Pneumonitis due to inhalation of food and vomit Status: Acute (4) Acute respiratory failure: Code(s): J96.00 - Acute respiratory failure, unspecified whether with hypoxia or hypercapnia Status: Acute Plan Patient presented due to respiratory failure resulting in cardiac arrest. Concern for anoxic brain injury. She was rewarmed yesterday evening and sedation was just turned off today. Will wait a few days to see if mental status improves. If no improvement, will obtain routine EEG. Unfortunately MRI brain cannot be done while she is mechanically ventilated. Consult date: 12/18/22 Time Seen: 14:04 Reason for consult: Concern for anoxic brain injury HPI: Katelyn Law is a 52 year old female with a history of COPD presenting with respiratory failure and then cardiac arrest. Patient was playing pool with her friend when she felt like something was off several times during the game. Due to persistence of symptoms, her friend urged her to be evaluated in the emergency room. Patient did not want to go via ambulance, so another friend came to pick her up and take her to the hospital. En route, patient told her friend to stop the car because she felt like she needed to stand up. She got out of the car and then collapsed. Her friend called 911, patient was pulseless so her friend started CPR. It is unclear how long until ROSC was achieved, but she was found to be in PEA when EMS arrived. She was intubated on site and transferred to [place] ED where she was admitted to the ICU. Her initial CT head was negative for acute process. She was started on hypothermia protocol, and was rewarmed yesterday evening. She was initially on versed and fentanyl for sedation, but has been weaned off both a few hours ago. She is still on broad spectrum antibiotics (Zosyn and vancomycin), due to concerns for aspiration pneumonia. Patient's friend is at bedside. She reports that patient has been moving her lower extremities somewhat, but not necessarily following commands. Review of Systems Review of Systems: ROS unobtainable: Yes unobtainable due to medical condition and unobtainable due to mental status [facility] Past Medical History Medical History CKD (chronic kidney disease) Congestive heart failure Depression Diabetes mellitus Surgical History Surgical History Status post lumbar spine surgery for decompression of spinal cord Family History Family History Sibling Hypertension Father Pancreatic adenoma Mother Asthma Other Diabetes mellitus Social History Social History Social History: Heavy smoker in the past used to smoke 2 and half pack per day until a year ago. Now smoking 1 pack a day. Friend denies any alcohol or drug abuse Smoking packs per day: 1 Smoking cigarettes per day: 20.0 Years smoked: 40 Smoking pack-years: 40.00 Smoking status: Former smoker Alcohol intake: never Substance use: never Spiritual care concerns: No Meds Home Medications and Allergies Home Medications Medication Instructions Recorded Confirmed Type allopurinol 100 mg tablet 100 mg PO DAILY 12/16/22 12/16/22 History atorvastatin 20 mg tablet 20 mg PO DAILY 12/16/22 12/16/22 History budesonide 160 mcg-glycopyr 9 2 inh inhalation BID 12/16/22 12/16/22 History mcg-formot 4.8 mcg/actuation HFA inhaler (Breztri Aerosphere) calcitriol 0.25 mcg capsule 0.25 mcg PO EVERY OTHER DAY 12/16/22 12/16/22 History cariprazine
[2022-12-18 16:14] LABS: Glucose Point of Care 149 mg/dl (65-105)
--- NOTE | 2022-12-18 18:43 | WPDPN ---
Progress Note: A&P Assessment and Plan (1) Cardiac arrest: Code(s): I46.9 - Cardiac arrest, cause unspecified Status: Acute Assessment and Plan: Patient is currently intubated unable to provide any review of symptoms or history, history is as recorded from reviewing electronic charts 12/18/2022 interval history: Patient is a 52-year-old with history of chronic respiratory failure with COPD on 2 L oxygen at home apparently patient was out with her friend and developed shortness of breath on her way home, 911 was called patient was in cardiac arrest and EMS instructed patient's friend start the CPR, and upon arrival of EMS patient was bradycardic and hypoxic patient was intubated patient was brought to the emergency depart, patient was hypothermic was placed on Silvino Hugger, today patient is maintaining body temperature, patient is following commands, discussed with intensive prognosis is guarded, patient temperature is rising and her vitals are improving currently patient is in ICU seen by cruise counselor and hardware designer will continue to monitor. (2) Aspiration pneumonia: Code(s): J69.0 - Pneumonitis due to inhalation of food and vomit Status: Acute Assessment and Plan: Patient is being treated with Zosyn will continue to monitor (3) Anoxic brain injury: Code(s): G93.1 - Anoxic brain damage, not elsewhere classified Status: Acute Assessment and Plan: Patient was hypoxic in the feet and cardiac arrest most likely patient has anoxic brain injury seen by hardware designer and cruise counselor (4) Anemia: Code(s): D64.9 - Anemia, unspecified Status: Acute Assessment and Plan: Will monitor hemoglobin and further recommendation to follow (5) Electrolyte imbalance: Code(s): E87.8 - Other disorders of electrolyte and fluid balance, not elsewhere classified Status: Acute Assessment and Plan: Will monitor electrolytes and supplement as needed Subjective Date/time seen: 12/18/22 18:43 Interval history: Patient is currently intubated unable to provide any review of symptoms or history, history is as recorded from reviewing electronic charts 12/18/2022 interval history: Patient is a 52-year-old with history of chronic respiratory failure with COPD on 2 L oxygen at home apparently patient was out with her friend and developed shortness of breath on her way home, 911 was called patient was in cardiac arrest and EMS instructed patient's friend start the CPR, and upon arrival of EMS patient was bradycardic and hypoxic patient was intubated patient was brought to the emergency depart, patient was hypothermic was placed on Silvino Hugger, today patient is maintaining body temperature, patient is following commands, discussed with intensive prognosis is guarded, patient temperature is rising and her vitals are improving currently patient is in ICU seen by cruise counselor and hardware designer will continue to monitor. Review of Systems Review of Systems: ROS unobtainable: Yes unobtainable due to endotracheal tube Exam Narrative: Patient is comfortable, NAD HEENT: ET tube in place LUNGS: Normal respiratory effort ABD: Distended Lower extremities: no edema SKIN: nonjaundiced Neuro: grossly intact. Objective Data Vital Signs Vital Signs: Vital Signs - 24 hr 12/17/22 19:43 12/17/22 19:44 12/17/22 19:46 Temperature Pulse Rate 125 H 125 H Respiratory Rate 20 Blood Pressure Pulse Oximetry 95 Oxygen Delivery Mechanical Ventilation Fraction of Inspired Oxygen 35 35 12/17/22 19:46 12/17/22 20:10 12/17/22 20:20 Temperature 100.1 F H Pulse Rate 125 H 121 H 120 H Respiratory Rate 20 20 Blood Pressure 106/56 L 110/64 Pulse Oximetry 95 Oxygen Delivery Fraction of Inspired Oxygen 12/17/22 20:58 12/17/22 20:59 12/17/22 22:00 Temperature Pulse Rate 111 H 111 H 101 H Respiratory Rate 20 20 Blood Pressure Pulse Oximetry
[2022-12-18] MEDS: dexmedeTOMIDine 400 MCG/100 ML 400 MCG/100 ML BAG IV CONT (21:10)
[2022-12-18] MEDS: HEPARIN SODIUM 5,000 UNITS/ML VIAL 5000 UNITS SUB-Q (21:18)
[2022-12-18 21:42] LABS: Glucose Point of Care 165 mg/dl (65-105)
[2022-12-19] VITALS (70 sets, daily range): BP systolic 103–130; BP diastolic 57–71; PULSE 77–97; RESP 15–44; TEMP 36.9–37.8; O2SAT 87–100
[2022-12-19] MEDS: PIPERACILLN/TAZ 3.375GM/NS50ML 3.375 GM/50 ML BAG IVPB ×5 (00:16→23:31)
[2022-12-19] MEDS: IPRATROPIUM BR 0.02% INH SOLN 0.5 MG/2.5 ML VIAL INHALATION ×4 (01:56→20:41)
[2022-12-19] MEDS: ALBUTEROL SULFATE NEB 2.5 MG/3 ML INH INHALATION ×4 (01:56→20:41)
[2022-12-19 03:12] LABS: Creatinine Urine 118.6 mg/dL
[2022-12-19 03:20] LABS: Potassium Urine Random 89.1 meq/L; Sodium Urine Random 8 meq/L
[2022-12-19 03:39] LABS: Eosinophil Urine None Seen % (None Seen)
[2022-12-19 04:28] LABS: Glucose Point of Care 169 mg/dl (65-105)
[2022-12-19 04:44] LABS: Hematocrit 31.1 % (37.0-47.0); Hemoglobin 10.3 g/dL (12.0-15.0); Mean Corpuscular HGB Conc 33.1 g/dl (32-36); Mean Corpuscular Hemoglobin 31.2 pg (26-34); Mean Corpuscular Volume 94.2 fl (80-100); Mean Platelet Volume 9.2 fl (7.4-10.4); Platelet Count Result 239 k/mm3 (150-375); Red Cell Distribution Width 15.2 % (11.5-14.5); White Blood Count 28.4 K/mm3 (4.5-10.0)
[2022-12-19 04:58] LABS: Glucose Point of Care 179 mg/dl (65-105)
[2022-12-19 05:00] LABS: Alveolar/Arterial O2 Gradient 175.9 mmHg; Carboxyhemoglobin 0.3 % THb (0-2.0); Device VENTILATOR; Fractional Inspired Oxygen 40 %; HCO3 ABG 25.6 mEq/l (22.0-26.0); Methemoglobin ABG 0.4 %THb (0-1.5); Modified Allen's Test Pass; Oxygen Saturation ABG 92.4 % (95.0-100.0); Oxyhemoglobin 90.9 % THb (90.0-100.0); PCO2 ABG 40.6 mmHg (35.0-45.0); PO2 ABG 62.6 mmHg (80.0-100.0); PO2 FiO2 Ratio Arterial Blood 1.56 %; Reduced Hemoglobin 8.4 %THb (0-5.0); Site Drawn LEFT RADIAL; Total Hemoglobin 13.3 g/dL (12.0-18.0); pH ABG 7.417 (7.350-7.450)
[2022-12-19 05:01] LABS: Arterial Blood Gas PEEP 5 cmH2O; Arterial Blood Gas Tidal Volume 400 ml; Arterial Blood Gas Vent Mode CMV; Arterial Blood Gas Ventilator rate 22 /MIN
[2022-12-19 05:12] LABS: Alanine Aminotransferase 43 U/L (6-35); Albumin Level 3.2 g/dL (3.5-5.1); Alkaline Phosphatase 115 U/L (38-126); Anion Gap 5 mmol/L (8-16); Aspartate Amino Transferase 47 U/L (14-36); Bilirubin,Total 0.5 mg/dL (0.2-1.3); Blood Urea Nitrogen 43 mg/dL (7-17); Calcium 8.4 mg/dL (8.4-10.2); Carbon Dioxide 29 mmol/L (22-30); Chloride 107 mmol/L (98-107); Estimated CRCL calculation 32 ml/min; Estimated Glomerular Filt Rate 24; Glucose 164 mg/dL (65-110); Magnesium 2.6 mg/dL (1.6-2.3); Phosphorus 4.3 mg/dL (2.5-4.5); Potassium 4.4 mmol/L (3.4-5.0); Sodium 141 mmol/L (137-145)
[2022-12-19 05:37] LABS: Urine Eos QC 2nd Tech Confirmed
[2022-12-19] MEDS: CENTRAL LINE FLUSH 10 ML IV PUSH ×4 (06:29→20:05)
[2022-12-19] MEDS: PROPOFOL IV EMULSION 100 ML 2.88 MG IV CONT (06:53)
[2022-12-19 07:35] LABS: Triglycerides 125 mg/dL (<150)
[2022-12-19] MEDS: levETIRAcetam 1000MG/NACL100ML 1,000 MG/100 ML BAG 400 MG IVPB (07:45)
[2022-12-19] MEDS: LORazepam INJ (*CRX) 2 MG/ML VIAL IV PUSH ×2 (07:45→10:46)
[2022-12-19 07:55] LABS: Glucose Point of Care 164 mg/dl (65-105)
[2022-12-19] MEDS: methylPREDNISolone SOD SUCC 125 MG VIAL 60 MG IV PUSH (08:34)
[2022-12-19] MEDS: PANTOPRAZOLE SODIUM IV 40 MG VIAL IV PUSH ×2 (08:35→20:06)
[2022-12-19] MEDS: MINERAL OIL/WHITE PETROLATUM OINTMENT 1 APPLIC EACH EYE ×2 (08:35→20:06)
[2022-12-19] MEDS: HEPARIN SODIUM 5,000 UNITS/ML VIAL 5000 UNITS SUB-Q ×2 (08:37→20:10)
--- NOTE | 2022-12-19 09:00 | WPDINTPN ---
Progress Note: A&P Assessment and Plan (1) Seizure: Code(s): R56.9 - Unspecified convulsions Status: Acute Assessment and Plan: 12/19: Patient had a seizure activity early this morning, was given Ativan 2 mg IV x1 and started on Keppra -neurology following the patient -patient require an EEG (2) Acute respiratory failure: Code(s): J96.00 - Acute respiratory failure, unspecified whether with hypoxia or hypercapnia Status: Acute Assessment and Plan: Acute Respiratory failure secondary to cardiac arrest, pulmonary edema, aspiration pneumonia patient also has baseline COPD -intubated on 12/16/2022 Continue full mechanical ventilation support to prevent hypoxemia/hypercarbia and end organ damage. -chest x-ray and ABGs reviewed, ventilator adjusted -thick alonzo secretions from a ETT, added Pulmozyme 12/16: Blood cultures , preliminary results with no growth x2 12/16: Urine cultures no growth 12/18: sputum cultures obtained and pending 12/18: MRSA screen pending Continue vancomycin (12/18) and Zosyn (12/16) Low tidal volume ventilation strategy to prevent volutrauma Continue bronchodilators -sedated with Precedex and propofol. CTA lung was negative for PE and showed 1. Bilateral interstitial changes of the lungs with interlobular septal thickening, patchy groundglass opacities, compatible with edema. Focal consolidation of the lower lobes is suspicious for superimposed pneumonia. Consider aspiration. (3) Cardiac arrest: Code(s): I46.9 - Cardiac arrest, cause unspecified Status: Acute Assessment and Plan: Patient had a PEA cardiac arrest which is likely secondary to respiratory failure as patient was short of breath and in respiratory distress for a while to collapsing. CT confirmed pulmonary edema and aspiration pneumonia. Negative for PE - On admission Patient received dose of Lasix with good urine output and improvement in her chest x-ray -will consult neurology, patient may require EEG -troponins have plateaued, cardiac arrest not probably related to cardiac event more so a respiratory event -cardiology following, no specific cardiac recommendations at this time. 12/16/2022 echocardiogram: Showed EF of 60-65%, LV septal wall motion is abnormal with septal motion related to bundle branch block, RV systolic function is normal, no evaluate the dysfunction (4) CKD (chronic kidney disease): Code(s): N18.9 - Chronic kidney disease, unspecified Status: Chronic Assessment and Plan: Patient has history of chronic kidney disease with a baseline creatinine is unknown -multiple etiologies, cardiac arrest, diuretics, angiotensin receptor blockers at home, contrast, infection - obtain records from [facility] -12/18: Decreased urine output, worsening renal function -12/18: renal ultrasound: Will kidneys without hydronephrosis -urine sodium was low, reflective of prerenal, urine eosinophils were negative, CK levels mildly elevated at 238. -Nephrology following the patient -will continue gentle IV hydration Monitor urine output electrolytes and creatinine (5) Congestive heart failure: Code(s): I50.9 - Heart failure, unspecified Status: Acute Assessment and Plan: Patient has history of congestive heart failure but details unknown Echo as above (6) Diabetes mellitus: Code(s): E11.9 - Type 2 diabetes mellitus without complications Status: Chronic Assessment and Plan: Continue sliding scale insulin at this time (7) Anoxic brain injury: Code(s): G93.1 - Anoxic brain damage, not elsewhere classified Status: Acute Assessment and Plan: Possibly sustained anoxic brain injury secondary to hypoxia/cardiac arrest. She was completely comatose after resuscitation Head CT was negative on presentation Status post TTM protocol Continue Nimbex infusion due to shivering and vent synchrony Neurology
[2022-12-19] MEDS: DORNASE ALFA INH SOLN 1 MG/ML 2.5 ML AMP 2.5 MG INHALATION (09:57)
[2022-12-19] MEDS: LACTATED RINGERS 1,000 ML 75 ML IV CONT (10:45)
[2022-12-19] MEDS: PROPOFOL IV EMULSION 100 ML 20.16 MG IV CONT (12:01)
[2022-12-19] MEDS: METOPROLOL TARTRATE 50 MG TAB PO ×2 (12:02→20:06)
--- NOTE | 2022-12-19 13:22 | WPDPN ---
Progress Note: A&P Assessment and Plan (1) Cardiac arrest: Code(s): I46.9 - Cardiac arrest, cause unspecified Status: Acute Assessment and Plan: Patient is currently intubated unable to provide any review of symptoms or history, history is as recorded from reviewing electronic charts 12/19/2022 interval history: Patient is a 52-year-old with history of chronic respiratory failure with COPD on 2 L oxygen at home apparently patient was out with her friend and developed shortness of breath on her way home, 911 was called patient was in cardiac arrest and EMS instructed patient's friend start the CPR, and upon arrival of EMS patient was bradycardic and hypoxic patient was intubated patient was brought to the emergency depart, patient was hypothermic was placed on Silvino Hugger, on 12/18 patient was maintaining body temperature, patient was following commands, however last night patient was having seizures, CT scan of head showed diffuse effacement of the cortical sulci with poor farfan-white differentiation, suspicious for underlying vasogenic edema.?patient is started on Keprra and Valporic acid, neurologist is consulted, discussed with intensive prognosis is guarded, today ict business development manager spoke with family and now patient is DNR, currently patient is in ICU seen by rivers and lakes boatman and ict business development manager will continue to monitor. (2) Aspiration pneumonia: Code(s): J69.0 - Pneumonitis due to inhalation of food and vomit Status: Acute Assessment and Plan: Patient is being treated with Zosyn will continue to monitor (3) Anoxic brain injury: Code(s): G93.1 - Anoxic brain damage, not elsewhere classified Status: Acute Assessment and Plan: Patient was hypoxic in the feet and cardiac arrest most likely patient has anoxic brain injury seen by ict business development manager and rivers and lakes boatman (4) Anemia: Code(s): D64.9 - Anemia, unspecified Status: Acute Assessment and Plan: Will monitor hemoglobin and further recommendation to follow (5) Electrolyte imbalance: Code(s): E87.8 - Other disorders of electrolyte and fluid balance, not elsewhere classified Status: Acute Assessment and Plan: Will monitor electrolytes and supplement as needed Subjective Date/time seen: 12/19/22 13:22 Interval history: Patient is currently intubated unable to provide any review of symptoms or history, history is as recorded from reviewing electronic charts 12/19/2022 interval history: Patient is a 52-year-old with history of chronic respiratory failure with COPD on 2 L oxygen at home apparently patient was out with her friend and developed shortness of breath on her way home, 911 was called patient was in cardiac arrest and EMS instructed patient's friend start the CPR, and upon arrival of EMS patient was bradycardic and hypoxic patient was intubated patient was brought to the emergency depart, patient was hypothermic was placed on Silvino Hugger, on 12/18 patient was maintaining body temperature, patient was following commands, however last night patient was having seizures, CT scan of head showed diffuse effacement of the cortical sulci with poor farfan-white differentiation, suspicious for underlying vasogenic edema.?patient is started on Keprra and Valporic acid, neurologist is consulted, discussed with intensive prognosis is guarded, today ict business development manager spoke with family and now patient is DNR, currently patient is in ICU seen by [place] boatman and ict business development manager will continue to monitor. Review of Systems Review of Systems: ROS unobtainable: Yes unobtainable due to endotracheal tube Exam Narrative: Patient is comfortable, NAD HEENT: ET tube in place LUNGS: Normal respiratory effort ABD: Distended Lower extremities: no edema SKIN: nonjaundiced Neuro: grossly intact. Objective Data Vital Signs Vital Signs: Vital Signs - 24 hr 12/18/22 13:35 12/18/22 13:35 12/18/22 14:33 Temperature Puls
--- NOTE | 2022-12-19 15:11 | P.PNNP_ITS ---
Progress Note: A&P Assessment and Plan (1) LIZETTE (acute kidney injury): Code(s): N17.9 - Acute kidney failure, unspecified Status: Acute Assessment and Plan: * unclear on what baseline creatinine is... * records request in progress * creatinine 1.3mg/dl and has worsened in the last 24 - 48 hours * noted decline in UOP as well * evaluation shows normal renal ultrasound. echocardiogram is okay urine electrolytes are pre renal CK is mildly high but improved and never high enough to cause kidney damage. * suspect mutifactorial etiology * PEA arrest * diuretic/ARB/metformin use PHARMACY ASSISTANT * contrast exposure (CTA on 12/16/22) * use of IV diuretics on admission * infection (possible pneumonia) * Getting antibiotics and IV fluids. * Discussed with Dr. Real * follow trend of repeat las and UOP (2) CKD (chronic kidney disease): Code(s): N18.9 - Chronic kidney disease, unspecified Status: Chronic Assessment and Plan: * reported history but specifics are unclear * record request in progress * presumably due to HTN, DM, and possible CHF * outpatient medications (calcitriol and sodium bicarbonate) argue she was being followed by outpatient nephrology (3) Acute respiratory failure: Code(s): J96.00 - Acute respiratory failure, unspecified whether with hypoxia or hypercapnia Status: Acute Assessment and Plan: * secondary to cardiac arrest and complicated by pulmonary edema and aspiration pneumonia by recent imaging along with baseline COPD * on ventilator support * on antibiotics for aspiration pneumonia * weaning depends on improvement in mental status (concern for anoxic brain injury noted) (4) Cardiac arrest: Code(s): I46.9 - Cardiac arrest, cause unspecified Status: Acute Assessment and Plan: * PEA * likely secondary to respiratory failure * no PE by CTA of chest * Echo results noted * Cardiology following (5) Aspiration pneumonia: Code(s): J69.0 - Pneumonitis due to inhalation of food and vomit Status: Acute Assessment and Plan: * on empiric antibiotic therapy * follow culture data * respiratory/ventilator support (6) Anemia: Code(s): D64.9 - Anemia, unspecified Status: Acute Assessment and Plan: * admission Hgb 6.1 * PRBC transfusion per protocol * follow H/H * hemoglobin 10.3 today. Will follow trend (7) Diabetes mellitus: Code(s): E11.9 - Type 2 diabetes mellitus without complications Status: Chronic Assessment and Plan: * follow accuchecks * glycemic control per fundraising coordinator Subjective Date/time seen: 12/19/22 15:11 Interval history: patient is sedated and on the ventilator. Exam Narrative: WDWN female in NAD on the ventilator sedated. skin no rash head ncat lungs Mildly coarse bilaterally cor reg no rub abd BS+ nontender and soft ext 2+ bilateral edema. Objective Data Vital Signs Vital Signs: Vital Signs - 24 hr 12/18/22 16:00 12/18/22 16:00 12/18/22 16:00 Temperature 100 F H Pulse Rate 119 H Respiratory Rate 22 H Blood Pressure 138/72 Pulse Oximetry 98 Oxygen Delivery Mechanical Ventilation Fraction of Inspired Oxygen 35 35 12/18/22 18:00 12/18/22 18:31 12/18
--- NOTE | 2022-12-19 15:11 | PM.PNNEP ---
Progress Note: A&P Assessment and Plan (1) LIZETTE (acute kidney injury): Code(s): N17.9 - Acute kidney failure, unspecified Status: Acute Assessment and Plan: unclear on what baseline creatinine is... records request in progress creatinine 1.3mg/dl and has worsened in the last 24 - 48 hours noted decline in UOP as well evaluation shows normal renal ultrasound. echocardiogram is okay urine electrolytes are pre renal CK is mildly high but improved and never high enough to cause kidney damage. suspect mutifactorial etiology PEA arrest diuretic/ARB/metformin use [employer]OUR contrast exposure (CTA on 12/16/22) use of IV diuretics on admission infection (possible pneumonia) Getting antibiotics and IV fluids. Discussed with Dr. Real follow trend of repeat las and UOP (2) CKD (chronic kidney disease): Code(s): N18.9 - Chronic kidney disease, unspecified Status: Chronic Assessment and Plan: reported history but specifics are unclear record request in progress presumably due to HTN, DM, and possible CHF outpatient medications (calcitriol and sodium bicarbonate) argue she was being followed by outpatient nephrology (3) Acute respiratory failure: Code(s): J96.00 - Acute respiratory failure, unspecified whether with hypoxia or hypercapnia Status: Acute Assessment and Plan: secondary to cardiac arrest and complicated by pulmonary edema and aspiration pneumonia by recent imaging along with baseline COPD on ventilator support on antibiotics for aspiration pneumonia weaning depends on improvement in mental status (concern for anoxic brain injury noted) (4) Cardiac arrest: Code(s): I46.9 - Cardiac arrest, cause unspecified Status: Acute Assessment and Plan: PEA likely secondary to respiratory failure no PE by CTA of chest Echo results noted Cardiology following (5) Aspiration pneumonia: Code(s): J69.0 - Pneumonitis due to inhalation of food and vomit Status: Acute Assessment and Plan: on empiric antibiotic therapy follow culture data respiratory/ventilator support (6) Anemia: Code(s): D64.9 - Anemia, unspecified Status: Acute Assessment and Plan: admission Hgb 6.1 PRBC transfusion per protocol follow H/H hemoglobin 10.3 today. Will follow trend (7) Diabetes mellitus: Code(s): E11.9 - Type 2 diabetes mellitus without complications Status: Chronic Assessment and Plan: follow accuchecks glycemic control per director of pharmacy Subjective Date/time seen: 12/19/22 15:11 Interval history: patient is sedated and on the ventilator. Exam Narrative: WDWN female in NAD on the ventilator sedated. skin no rash head ncat lungs Mildly coarse bilaterally cor reg no rub abd BS+ nontender and soft ext 2+ bilateral edema. Objective Data Vital Signs Vital Signs: Vital Signs - 24 hr 12/18/22 16:00 12/18/22 16:00 12/18/22 16:00 Temperature 100 F H Pulse Rate 119 H Respiratory Rate 22 H Blood Pressure 138/72 Pulse Oximetry 98 Oxygen Delivery Mechanical Ventilation Fraction of Inspired Oxygen 35 35 12/18/22 18:00 12/18/22 18:31 12/18/22 16:00 Temperature Pulse Rate 94 83 103 H Respiratory Rate 24 H Blood Pressure Pulse Oximetry Oxygen Delivery Fraction of Inspired Oxygen 12/18/22 15:15 12/18/22 15:30 12/18/22 15:31 Temperature 100.3 F H 100.2 F H 100.2 F H Pulse Rate 107 H 105 H 114 H Respiratory Rate 21 H 22 H 22 H Blood Pressure 137/73 Pulse Oximetry 98 97 97 Oxygen Delivery Fraction of Inspired Oxygen 12/18/22 15:45 12/18/22 16:00 12/18/22 16:01 Temperature 100.1 F H 100.1 F H 100.1 F H Pulse Rate 104 H 104 H 103 H Respiratory Rate 21 H 21 H 22 H Blood Pressure 139/72 Pulse Oximetry 97 97 97 Oxygen Delivery Fraction of Inspired Oxygen 12/18/22 16:15
[2022-12-19 15:17] LABS: Glucose Point of Care 208 mg/dl (65-105)
[2022-12-19 15:17] LABS: Glucose Point of Care 138 mg/dl (65-105)
[2022-12-19] MEDS: PROPOFOL IV EMULSION 100 ML 17.28 MG IV CONT ×2 (17:08→23:25)
[2022-12-19] MEDS: INSULIN ASPART (*BKC) 100 UNITS/ML SUB-Q (17:09)
--- NOTE | 2022-12-19 18:36 | PC.NURSE ---
1829-spoke with patients son Dariusz on the phone, stated that he was the power of commonwealth attorney since hes her son and wanted to reverse the code status despite the charted POA brother Anton that is listed. I responded that legal documentation should be brought in and we could honor families wishes. 1837-Edwar correctional casework specialist called stated amos Arzola called him with this issue Boiler Inspector and charge nurse updated.
[2022-12-19] MEDS: levETIRAcetam 500MG/NACL 100ML 500 MG/100 ML BAG 400 MG IVPB (19:53)
[2022-12-19 20:08] LABS: Glucose Point of Care 137 mg/dl (65-105)
[2022-12-19] MEDS: BUDESONIDE RESPULE NEB 0.5 MG/2 ML AMP INHALATION (20:41)
--- NOTE | 2022-12-19 22:48 | PC.NURSE ---
Pt's brother Horacio called asking for an update. Told Horacio all VSS at this time and pt status is the same and that she is still DNR. Horacio said that the family wished for the pt to be full code until after Mother's Day. This RN asked to speak with Anton who we have designated as the POA at this time. Anton verified that he and the family wish for the pt to be a full code until after Mother's Day. Verified over the phone with ELISE Dominguez that Anton wishes for the pt to be a full code at this time. This RN spoke with Anton to tell him that whenever he and the family are ready to place pt back at DNR status, to let nursing staff know. Anton said that he will be back in the area Wednesday.
[2022-12-19 23:35] LABS: Glucose Point of Care 159 mg/dl (65-105)
[2022-12-20] VITALS (33 sets, daily range): BP systolic 102–191; BP diastolic 47–139; PULSE 69–103; RESP 22–28; TEMP 37.1–37.7; O2SAT 93–100
[2022-12-20] MEDS: ALBUTEROL SULFATE NEB 2.5 MG/3 ML INH INHALATION ×4 (01:38→20:14)
[2022-12-20] MEDS: IPRATROPIUM BR 0.02% INH SOLN 0.5 MG/2.5 ML VIAL INHALATION ×4 (01:38→20:13)
[2022-12-20] MEDS: LACTATED RINGERS 1,000 ML 75 ML IV CONT (03:16)
[2022-12-20] MEDS: PROPOFOL IV EMULSION 100 ML 23.04 MG IV CONT (03:47)
[2022-12-20 03:50] LABS: Hemoglobin 9.5 g/dL (12.0-15.0); Mean Corpuscular HGB Conc 32.8 g/dl (32-36); Mean Corpuscular Hemoglobin 30.6 pg (26-34); Mean Corpuscular Volume 93.5 fl (80-100); Mean Platelet Volume 9.6 fl (7.4-10.4); Platelet Count Result 225 k/mm3 (150-375); Red Cell Distribution Width 15.4 % (11.5-14.5); White Blood Count 25.7 K/mm3 (4.5-10.0)
[2022-12-20 04:00] LABS: Alanine Aminotransferase 36 U/L (6-35); Albumin Level 3.3 g/dL (3.5-5.1); Alkaline Phosphatase 118 U/L (38-126); Anion Gap 5 mmol/L (8-16); Aspartate Amino Transferase 48 U/L (14-36); Bilirubin,Total 0.4 mg/dL (0.2-1.3); Blood Urea Nitrogen 46 mg/dL (7-17); Calcium 8.6 mg/dL (8.4-10.2); Carbon Dioxide 28 mmol/L (22-30); Chloride 107 mmol/L (98-107); Estimated CRCL calculation 39 ml/min; Estimated Glomerular Filt Rate 30; Glucose 126 mg/dL (65-110); Magnesium 2.4 mg/dL (1.6-2.3); Phosphorus 3.5 mg/dL (2.5-4.5); Potassium 3.8 mmol/L (3.4-5.0); Sodium 140 mmol/L (137-145)
[2022-12-20] MEDS: CENTRAL LINE FLUSH 10 ML IV PUSH ×4 (05:36→20:24)
[2022-12-20] MEDS: PIPERACILLN/TAZ 3.375GM/NS50ML 3.375 GM/50 ML BAG IVPB ×4 (05:36→23:05)
[2022-12-20 05:39] LABS: Alveolar/Arterial O2 Gradient 97.9 mmHg; Base Excess ABG 2.2 mEq/l (+/-2.0); HCO3 ABG 26.8 mEq/l (22.0-26.0); Methemoglobin ABG 0.4 %THb (0-1.5); Oxygen Saturation ABG 93.7 % (95.0-100.0); Oxyhemoglobin 92.5 % THb (90.0-100.0); PCO2 ABG 41.7 mmHg (35.0-45.0); PO2 FiO2 Ratio Arterial Blood 2.23 %; Reduced Hemoglobin 7.1 %THb (0-5.0); Total Hemoglobin 12.3 g/dL (12.0-18.0); pH ABG 7.426 (7.350-7.450)
[2022-12-20] MEDS: ALTEPLASE 2 MG VIAL (CATHFLO) IV PUSH ×2 (05:42→06:24)
[2022-12-20 05:49] LABS: Device VENTILATOR; Fractional Inspired Oxygen 35 %; Modified Allen's Test Pass; Site Drawn LEFT RADIAL
[2022-12-20 05:50] LABS: Arterial Blood Gas PEEP 5 cmH2O; Arterial Blood Gas Tidal Volume 400 ml; Arterial Blood Gas Vent Mode CMV; Arterial Blood Gas Ventilator rate 22 /MIN
[2022-12-20] MEDS: DORNASE ALFA INH SOLN 1 MG/ML 2.5 ML AMP 2.5 MG INHALATION ×2 (07:15→20:14)
[2022-12-20] MEDS: BUDESONIDE RESPULE NEB 0.5 MG/2 ML AMP INHALATION ×2 (07:15→20:14)
[2022-12-20 08:13] LABS: Glucose Point of Care 94 mg/dl (65-105)
--- NOTE | 2022-12-20 08:24 | WPDINTPN ---
Progress Note: A&P Assessment and Plan (1) Seizure: Code(s): R56.9 - Unspecified convulsions Status: Acute Assessment and Plan: 12/19: Patient had a seizure activity early this morning, was given Ativan 2 mg IV x1 and started on Keppra -neurology following the patient -patient require an EEG (2) Acute respiratory failure: Code(s): J96.00 - Acute respiratory failure, unspecified whether with hypoxia or hypercapnia Status: Acute Assessment and Plan: Acute Respiratory failure secondary to cardiac arrest, pulmonary edema, aspiration pneumonia patient also has baseline COPD -intubated on 12/16/2022 Continue full mechanical ventilation support to prevent hypoxemia/hypercarbia and end organ damage. -chest x-ray and ABGs reviewed, ventilator adjusted -thick alonzo secretions from a ETT, added Pulmozyme 12/16: Blood cultures , preliminary results with no growth x2 12/16: Urine cultures no growth 12/18: sputum cultures negative for now except yeast which is likely colonization 12/18: MRSA screen negative Continue vancomycin (12/18) and Zosyn (12/16). Low tidal volume ventilation strategy to prevent volutrauma Continue bronchodilators Currently sedated with propofol but will perform sedation holiday Continue Solu-Medrol Hold IV fluids CTA lung was negative for PE and showed 1. Bilateral interstitial changes of the lungs with interlobular septal thickening, patchy groundglass opacities, compatible with edema. Focal consolidation of the lower lobes is suspicious for superimposed pneumonia. Consider aspiration. (3) Cardiac arrest: Code(s): I46.9 - Cardiac arrest, cause unspecified Status: Acute Assessment and Plan: Patient had a PEA cardiac arrest which is likely secondary to respiratory failure as patient was short of breath and in respiratory distress for a while to collapsing. CT confirmed pulmonary edema and aspiration pneumonia. Negative for PE - On admission Patient received dose of Lasix with good urine output and improvement in her chest x-ray -troponins have plateaued, cardiac arrest not probably related to cardiac event more so a respiratory event -cardiology following, no specific cardiac recommendations at this time. 12/16/2022 echocardiogram: Showed EF of 60-65%, LV septal wall motion is abnormal with septal motion related to bundle branch block, RV systolic function is normal, no evaluate the dysfunction (4) CKD (chronic kidney disease): Code(s): N18.9 - Chronic kidney disease, unspecified Status: Chronic Assessment and Plan: Patient has history of chronic kidney disease with a baseline creatinine is unknown -multiple etiologies, cardiac arrest, diuretics, angiotensin receptor blockers at home, contrast, infection - obtain records from [facility] -12/18: Decreased urine output, worsening renal function -12/18: renal ultrasound: Will kidneys without hydronephrosis -urine sodium was low, reflective of prerenal, urine eosinophils were negative, CK levels mildly elevated at 238. -Nephrology following the patient -creatinine improved with IV fluids. Hold further IV fluids at this time Monitor urine output electrolytes and creatinine (5) Congestive heart failure: Code(s): I50.9 - Heart failure, unspecified Status: Acute Assessment and Plan: Patient has history of congestive heart failure but details unknown Echo as above (6) Diabetes mellitus: Code(s): E11.9 - Type 2 diabetes mellitus without complications Status: Chronic Assessment and Plan: Continue sliding scale insulin at this time (7) Anoxic brain injury: Code(s): G93.1 - Anoxic brain damage, not elsewhere classified Status: Acute Assessment and Plan: Possibly sustained anoxic brain injury secondary to hypoxia/cardiac arrest. She was completely comatose after resuscitation Head CT was negative on presentation but on
[2022-12-20] MEDS: levETIRAcetam 500MG/NACL 100ML 500 MG/100 ML BAG 400 MG IVPB ×2 (08:43→20:20)
[2022-12-20] MEDS: MINERAL OIL/WHITE PETROLATUM OINTMENT 1 APPLIC EACH EYE ×2 (08:48→20:23)
[2022-12-20] MEDS: methylPREDNISolone SOD SUCC 125 MG VIAL 60 MG IV PUSH (08:48)
[2022-12-20] MEDS: PANTOPRAZOLE SODIUM IV 40 MG VIAL IV PUSH ×2 (08:49→20:23)
[2022-12-20] MEDS: METOPROLOL TARTRATE 50 MG TAB PO ×2 (08:49→20:30)
[2022-12-20] MEDS: HEPARIN SODIUM 5,000 UNITS/ML VIAL 5000 UNITS SUB-Q ×2 (08:59→20:23)
--- NOTE | 2022-12-20 10:33 | WPDNEUROPN ---
Progress Note: A&P Assessment and Plan (1) Anoxic brain injury: Code(s): G93.1 - Anoxic brain damage, not elsewhere classified Status: Acute (2) Seizure: Code(s): R56.9 - Unspecified convulsions Status: Acute (3) Cardiac arrest: Code(s): I46.9 - Cardiac arrest, cause unspecified Status: Acute (4) Acute respiratory failure: Code(s): J96.00 - Acute respiratory failure, unspecified whether with hypoxia or hypercapnia Status: Acute Plan Patient presented due to respiratory failure resulting in cardiac arrest. Lack of improvement in exam, as well as CT findings are suggestive of significant anoxic brain injury. Continue maintenance Keppra and VPA. Propofol is also providing additional coverage for seizures. Plan for routine EEG tomorrow -- to be done off propofol. Subjective Date/time seen: 12/20/22 10:33 Interval history: Katelyn Law is a 52 year old female with a history of COPD presenting with respiratory failure and then cardiac arrest. Patient was playing pool with her friend when she felt like something was off several times during the game. Due to persistence of symptoms, her friend urged her to be evaluated in the emergency room. Patient did not want to go via ambulance, so another friend came to pick her up and take her to the hospital. En route, patient told her friend to stop the car because she felt like she needed to stand up. She got out of the car and then collapsed. Her friend called 911, patient was pulseless so her friend started CPR. It is unclear how long until ROSC was achieved, but she was found to be in PEA when EMS arrived. She was intubated on site and transferred to [facility] where she was admitted to the ICU. Her initial CT head was negative for acute process. She was started on hypothermia protocol, and was rewarmed on 12/17. She was initially on versed and fentanyl for sedation, but has been weaned off both on 12/18. She is on maintenance Keppra. On 12/18 there were concerns for breakthrough seizures so she was also started on maintenance VPA 300mg qhrs. Repeat CT head was done which showed effacement of sulci with loss of farfan-white matter differentiation. Review of Systems Review of Systems: ROS unobtainable: Yes unobtainable due to endotracheal tube, unobtainable due to medical condition and unobtainable due to mental status Exam Const: Other: sedated with propofol HENMT: Mouth: Yes moist mucous membranes Eyes: Other: Pupils reactive to light bilaterally. Left pupil 6mm-->5mm, right pupil 5mm-->4mm Resp: Other: mechanically ventillated Cardio: Rate: regular rate GI: GI Palp: Yes Soft to palpation Urinary Catheter: Urinary Catheter: patent and draining Skin: General skin exam: normal color Neuro: Other: pupils slightly unequal but both reactive to light (left more dilated), face appears symmetric. Postured with noxious stimuli but no movements or eye opening. Did not follow commands. No spontaneous movements or eye opening. Extrem: General: normal to inspection Objective Data Vital Signs Vital Signs: Vital Signs - 24 hr 12/19/22 10:35 12/19/22 12:01 12/19/22 12:01 Temperature Pulse Rate 91 86 88 Respiratory Rate 26 H 25 H Blood Pressure Pulse Oximetry 95 Oxygen Delivery Mechanical Ventilation Fraction of Inspired Oxygen 35 12/19/22 12:02 12/19/22 12:00 12/19/22 12:00 Temperature Pulse Rate 85 Respiratory Rate Blood Pressure Pulse Oximetry Oxygen Delivery Mechanical Ventilation Fraction of Inspired Oxygen 35 35 12/19/22 12:00 12/19/22 12:00 12/19/22 11:01 Temperature 37.2 C 37.6 C Pulse Rate 86 85 88 Respiratory Rate 22 H 22 H Blood Pressure 115/59 L 120/57 L Pulse Oximetry 96 93 Oxygen Delivery Fraction of Inspired Oxygen 12/19/22 11:13 12/19/22 11:38 12/19/22 11:52 Temperature 37.5 C Pulse Rate 90 88 86 Respiratory Rate 22 H 22
--- NOTE | 2022-12-20 10:58 | P.PNNP_ITS ---
Progress Note: A&P Assessment and Plan (1) LIZETTE (acute kidney injury): Code(s): N17.9 - Acute kidney failure, unspecified Status: Acute Assessment and Plan: * unclear on what baseline creatinine is. * records request in progress * creatinine fabrizio and peaked day before yesterday plus yesterday and now on its way down. * noted decline in UOP as well * evaluation shows normal renal ultrasound. echocardiogram is okay urine electrolytes are pre renal CK is mildly high but improved and never high enough to cause kidney damage. * suspect mutifactorial etiology * PEA arrest * diuretic/ARB/metformin use REPAIR ORDER CLERK * contrast exposure (CTA on 12/16/22) * use of IV diuretics on admission * infection (possible pneumonia) * Getting antibiotics and IV fluids. * Discussed with Dr. Paulino * Since the creatinine is better, the timing is consistent with contrast. * follow trend of repeat las and UOP (2) CKD (chronic kidney disease): Code(s): N18.9 - Chronic kidney disease, unspecified Status: Chronic Assessment and Plan: * reported history but specifics are unclear * record request in progress * presumably due to HTN, DM, and possible CHF * outpatient medications (calcitriol and sodium bicarbonate) argue she was being followed by outpatient nephrology (3) Acute respiratory failure: Code(s): J96.00 - Acute respiratory failure, unspecified whether with hypoxia or hypercapnia Status: Acute Assessment and Plan: * secondary to cardiac arrest and complicated by pulmonary edema and aspiration pneumonia by recent imaging along with baseline COPD * on ventilator support * on antibiotics for aspiration pneumonia * weaning depends on improvement in mental status (concern for anoxic brain injury noted) (4) Cardiac arrest: Code(s): I46.9 - Cardiac arrest, cause unspecified Status: Acute Assessment and Plan: * PEA * likely secondary to respiratory failure * no PE by CTA of chest * Echo results noted * Cardiology following (5) Aspiration pneumonia: Code(s): J69.0 - Pneumonitis due to inhalation of food and vomit Status: Acute Assessment and Plan: * on Piperacillin and Vancomycin * follow culture data * respiratory/ventilator support (6) Anemia: Code(s): D64.9 - Anemia, unspecified Status: Acute Assessment and Plan: * admission Hgb 6.1 * PRBC transfusion per protocol * follow H/H * hemoglobin 10.3 today. Will follow trend (7) Diabetes mellitus: Code(s): E11.9 - Type 2 diabetes mellitus without complications Status: Chronic Assessment and Plan: * follow accuchecks * glycemic control per cement mixer Subjective Date/time seen: 12/20/22 10:58 Interval history: patient is on the ventilator. Propofol was held to assess mental status. She is not responding so far. Exam Narrative: WDWN female in NAD on the ventilator and unresponsive skin no rash head ncat lungs Mildly coarse bilaterally cor reg no rub abd BS+ nontender and soft ext 2+ bilateral edema. Objective Data Vital Signs Vital Signs: Vital Signs - 24 hr 12/19/22 12:01 12/19/22 12:01 12/19/22 12:02 Temperature Pulse Rate 86 88 85 Respiratory Rate 26 H 25 H Blood Pressure
--- NOTE | 2022-12-20 10:58 | PM.PNNEP ---
Progress Note: A&P Assessment and Plan (1) LIZETTE (acute kidney injury): Code(s): N17.9 - Acute kidney failure, unspecified Status: Acute Assessment and Plan: unclear on what baseline creatinine is. records request in progress creatinine fabrizio and peaked day before yesterday plus yesterday and now on its way down. noted decline in UOP as well evaluation shows normal renal ultrasound. echocardiogram is okay urine electrolytes are pre renal CK is mildly high but improved and never high enough to cause kidney damage. suspect mutifactorial etiology PEA arrest diuretic/ARB/metformin use FAMILY NURSE contrast exposure (CTA on 12/16/22) use of IV diuretics on admission infection (possible pneumonia) Getting antibiotics and IV fluids. Discussed with Dr. Paulino Since the creatinine is better, the timing is consistent with contrast. follow trend of repeat las and UOP (2) CKD (chronic kidney disease): Code(s): N18.9 - Chronic kidney disease, unspecified Status: Chronic Assessment and Plan: reported history but specifics are unclear record request in progress presumably due to HTN, DM, and possible CHF outpatient medications (calcitriol and sodium bicarbonate) argue she was being followed by outpatient nephrology (3) Acute respiratory failure: Code(s): J96.00 - Acute respiratory failure, unspecified whether with hypoxia or hypercapnia Status: Acute Assessment and Plan: secondary to cardiac arrest and complicated by pulmonary edema and aspiration pneumonia by recent imaging along with baseline COPD on ventilator support on antibiotics for aspiration pneumonia weaning depends on improvement in mental status (concern for anoxic brain injury noted) (4) Cardiac arrest: Code(s): I46.9 - Cardiac arrest, cause unspecified Status: Acute Assessment and Plan: PEA likely secondary to respiratory failure no PE by CTA of chest Echo results noted Cardiology following (5) Aspiration pneumonia: Code(s): J69.0 - Pneumonitis due to inhalation of food and vomit Status: Acute Assessment and Plan: on Piperacillin and Vancomycin follow culture data respiratory/ventilator support (6) Anemia: Code(s): D64.9 - Anemia, unspecified Status: Acute Assessment and Plan: admission Hgb 6.1 PRBC transfusion per protocol follow H/H hemoglobin 10.3 today. Will follow trend (7) Diabetes mellitus: Code(s): E11.9 - Type 2 diabetes mellitus without complications Status: Chronic Assessment and Plan: follow accuchecks glycemic control per licensed prosthetist/orthotist Subjective Date/time seen: 12/20/22 10:58 Interval history: patient is on the ventilator. Propofol was held to assess mental status. She is not responding so far. Exam Narrative: WDWN female in NAD on the ventilator and unresponsive skin no rash head ncat lungs Mildly coarse bilaterally cor reg no rub abd BS+ nontender and soft ext 2+ bilateral edema. Objective Data Vital Signs Vital Signs: Vital Signs - 24 hr 12/19/22 12:01 12/19/22 12:01 12/19/22 12:02 Temperature Pulse Rate 86 88 85 Respiratory Rate 26 H 25 H Blood Pressure Pulse Oximetry Oxygen Delivery Fraction of Inspired Oxygen 12/19/22 12:00 12/19/22 12:00 12/19/22 12:00 Temperature Pulse Rate 86 Respiratory Rate Blood Pressure Pulse Oximetry Oxygen Delivery Mechanical Ventilation Fraction of Inspired Oxygen 35 35 12/19/22 12:00 12/19/22 11:01 12/19/22 11:13 Temperature 99 F 99.6 F 99.5 F Pulse Rate 85 88 90 Respiratory Rate 22 H 22 H 22 H Blood Pressure 115/59 L 120/57 L Pulse Oximetry 96 93 92 Oxygen Delivery Fraction of Inspired Oxygen 12/19/22 11:38 12/19/22 11:52 12/19/22 11:55 Temperature Pulse Rate 88 86 85 Respiratory Rate 22 H 22 H Blood Pres
[2022-12-20 11:39] LABS: Glucose Point of Care 169 mg/dl (65-105)
--- NOTE | 2022-12-20 14:28 | WPDPN ---
Progress Note: A&P Assessment and Plan (1) Cardiac arrest: Code(s): I46.9 - Cardiac arrest, cause unspecified Status: Acute Assessment and Plan: Patient is currently intubated unable to provide any review of symptoms or history, history is as recorded from reviewing electronic charts 12/20/2022 interval history: Patient is a 52-year-old with history of chronic respiratory failure with COPD on 2 L oxygen at home apparently patient was out with her friend and developed shortness of breath on her way home, 911 was called patient was in cardiac arrest and EMS instructed patient's friend start the CPR, and upon arrival of EMS patient was bradycardic and hypoxic patient was intubated patient was brought to the emergency depart, patient was hypothermic was placed on Silvino Hugger, on 12/18 patient was maintaining body temperature, patient was following commands, however on night of 12/18 patient was having seizures, CT scan of head showed diffuse effacement of the cortical sulci with poor farfan-white differentiation, suspicious for underlying vasogenic edema.?patient is started on Keprra and Valporic acid, neurologist is consulted, and patient will have EEG tomorrow, discussed with intensive prognosis is guarded, on 12/19 board lining machine operator spoke with family and now patient is DNR, currently patient is in ICU seen by mid wife and board lining machine operator will continue to monitor. (2) Aspiration pneumonia: Code(s): J69.0 - Pneumonitis due to inhalation of food and vomit Status: Acute Assessment and Plan: Patient is being treated with Zosyn will continue to monitor (3) Anoxic brain injury: Code(s): G93.1 - Anoxic brain damage, not elsewhere classified Status: Acute Assessment and Plan: Patient was hypoxic in the feet and cardiac arrest most likely patient has anoxic brain injury seen by board lining machine operator and mid wife (4) Anemia: Code(s): D64.9 - Anemia, unspecified Status: Acute Assessment and Plan: Will monitor hemoglobin and further recommendation to follow (5) Electrolyte imbalance: Code(s): E87.8 - Other disorders of electrolyte and fluid balance, not elsewhere classified Status: Acute Assessment and Plan: Will monitor electrolytes and supplement as needed Subjective Date/time seen: 12/20/22 14:28 Interval history: Patient is currently intubated unable to provide any review of symptoms or history, history is as recorded from reviewing electronic charts 12/20/2022 interval history: Patient is a 52-year-old with history of chronic respiratory failure with COPD on 2 L oxygen at home apparently patient was out with her friend and developed shortness of breath on her way home, 911 was called patient was in cardiac arrest and EMS instructed patient's friend start the CPR, and upon arrival of EMS patient was bradycardic and hypoxic patient was intubated patient was brought to the emergency depart, patient was hypothermic was placed on Silvino Hugger, on 12/18 patient was maintaining body temperature, patient was following commands, however on night of 12/18 patient was having seizures, CT scan of head showed diffuse effacement of the cortical sulci with poor farfan-white differentiation, suspicious for underlying vasogenic edema.?patient is started on Keprra and Valporic acid, neurologist is consulted, and patient will have EEG tomorrow, discussed with intensive prognosis is guarded, on 12/19 board lining machine operator spoke with family and now patient is DNR, currently patient is in ICU seen by mid wife and board lining machine operator will continue to monitor. Review of Systems Review of Systems: ROS unobtainable: Yes unobtainable due to endotracheal tube Exam Narrative: Patient is comfortable, NAD HEENT: ET tube in place LUNGS: Normal respiratory effort ABD: Distended Lower extremities: no edema SKIN: nonjaundiced Neuro: grossly intact. Objective Data Vital Signs Vital Signs:
[2022-12-20] MEDS: PROPOFOL IV EMULSION 100 ML 11.52 MG IV CONT (15:31)
[2022-12-20 16:11] LABS: Glucose Point of Care 165 mg/dl (65-105)
[2022-12-20 21:14] LABS: Glucose Point of Care 135 mg/dl (65-105)
[2022-12-20] MEDS: PROPOFOL IV EMULSION 100 ML 14.4 MG IV CONT (23:02)
[2022-12-21] VITALS (21 sets, daily range): BP systolic 98–135; BP diastolic 54–80; PULSE 65–85; RESP 22–28; TEMP 36.8–37.6; O2SAT 76–100
[2022-12-21 01:09] LABS: Glucose Point of Care 92 mg/dl (65-105)
[2022-12-21] MEDS: ALBUTEROL SULFATE NEB 2.5 MG/3 ML INH INHALATION ×2 (03:33→08:00)
[2022-12-21] MEDS: IPRATROPIUM BR 0.02% INH SOLN 0.5 MG/2.5 ML VIAL INHALATION ×2 (03:34→08:00)
[2022-12-21] MEDS: PROPOFOL IV EMULSION 100 ML 14.4 MG IV CONT (03:55)
[2022-12-21 04:22] LABS: Hematocrit 28.3 % (37.0-47.0); Hemoglobin 9.3 g/dL (12.0-15.0); Mean Corpuscular HGB Conc 32.9 g/dl (32-36); Mean Corpuscular Hemoglobin 30.9 pg (26-34); Mean Platelet Volume 9.6 fl (7.4-10.4); Platelet Count Result 222 k/mm3 (150-375); Red Blood Count 3.01 M/mm3 (4.2-5.4); Red Cell Distribution Width 15.2 % (11.5-14.5); White Blood Count 21.4 K/mm3 (4.5-10.0)
[2022-12-21 04:36] LABS: Alanine Aminotransferase 43 U/L (6-35); Albumin Level 3.1 g/dL (3.5-5.1); Alkaline Phosphatase 123 U/L (38-126); Anion Gap 2 mmol/L (8-16); Aspartate Amino Transferase 53 U/L (14-36); Bilirubin,Total 0.5 mg/dL (0.2-1.3); Blood Urea Nitrogen 48 mg/dL (7-17); Calcium 8.8 mg/dL (8.4-10.2); Carbon Dioxide 31 mmol/L (22-30); Chloride 108 mmol/L (98-107); Estimated CRCL calculation 47 ml/min; Estimated Glomerular Filt Rate 37; Glucose 92 mg/dL (65-110); Magnesium 2.2 mg/dL (1.6-2.3); Phosphorus 3.3 mg/dL (2.5-4.5); Potassium 3.6 mmol/L (3.4-5.0); Sodium 141 mmol/L (137-145)
[2022-12-21] MEDS: PIPERACILLN/TAZ 3.375GM/NS50ML 3.375 GM/50 ML BAG IVPB (05:16)
[2022-12-21 06:11] LABS: Alveolar/Arterial O2 Gradient 142.4 mmHg; Base Excess ABG 2.1 mEq/l (+/-2.0); Carboxyhemoglobin 0.3 % THb (0-2.0); Fractional Inspired Oxygen 35 %; HCO3 ABG 25.6 mEq/l (22.0-26.0); Methemoglobin ABG 0.4 %THb (0-1.5); Oxygen Content ABG 16.2 %vol (16.0-22.0); Oxygen Saturation ABG 94.1 % (95.0-100.0); Oxyhemoglobin 92.2 % THb (90.0-100.0); PCO2 ABG 36.1 mmHg (35.0-45.0); PO2 ABG 65.2 mmHg (80.0-100.0); PO2 FiO2 Ratio Arterial Blood 1.86 %; Reduced Hemoglobin 7.1 %THb (0-5.0); Total Hemoglobin 12.5 g/dL (12.0-18.0); pH ABG 7.469 (7.350-7.450)
[2022-12-21 06:22] LABS: Device VENTILATOR; Modified Allen's Test Pass; Site Drawn RIGHT RADIAL
[2022-12-21 06:23] LABS: Arterial Blood Gas PEEP 5 cmH2O; Arterial Blood Gas Tidal Volume 400 ml; Arterial Blood Gas Vent Mode CMV; Arterial Blood Gas Ventilator rate 22 /MIN
[2022-12-21 06:30] LABS: Triglycerides 77 mg/dL (<150)
[2022-12-21] MEDS: CENTRAL LINE FLUSH 10 ML IV PUSH ×4 (06:30→21:02)
[2022-12-21 06:52] LABS: Vancomycin Trough 15.1 ug/mL (10.0-20.0)
[2022-12-21 07:28] LABS: Glucose Point of Care 101 mg/dl (65-105)
[2022-12-21] MEDS: BUDESONIDE RESPULE NEB 0.5 MG/2 ML AMP INHALATION (08:00)
[2022-12-21] MEDS: PANTOPRAZOLE SODIUM IV 40 MG VIAL IV PUSH (08:03)
[2022-12-21] MEDS: METOPROLOL TARTRATE 50 MG TAB PO (08:04)
[2022-12-21] MEDS: MINERAL OIL/WHITE PETROLATUM OINTMENT 1 APPLIC EACH EYE (08:04)
[2022-12-21] MEDS: methylPREDNISolone SOD SUCC 125 MG VIAL 60 MG IV PUSH (08:04)
[2022-12-21] MEDS: FUROSEMIDE INJ 40 MG/4 ML VIAL IV PUSH (08:10)
--- NOTE | 2022-12-21 08:11 | WPDINTPN ---
Progress Note: A&P Assessment and Plan (1) Seizure: Code(s): R56.9 - Unspecified convulsions Status: Acute Assessment and Plan: 12/19: Patient had a seizure activity early this morning, was given Ativan 2 mg IV x1 and started on Keppra -continue Keppra and valproic acid -neurology following the patient -EEG is ordered for today (2) Acute respiratory failure: Code(s): J96.00 - Acute respiratory failure, unspecified whether with hypoxia or hypercapnia Status: Acute Assessment and Plan: Acute Respiratory failure secondary to cardiac arrest, pulmonary edema, aspiration pneumonia patient also has baseline COPD -intubated on 12/16/2022 Continue full mechanical ventilation support to prevent hypoxemia/hypercarbia and end organ damage. -chest x-ray and ABGs reviewed, ventilator adjusted -thick alonzo secretions from a ETT, added Pulmozyme 12/16: Blood cultures , preliminary results with no growth x2 12/16: Urine cultures no growth 12/18: sputum cultures negative for now except yeast which is likely colonization 12/18: MRSA screen negative Continue vancomycin (12/18) and Zosyn (12/16). Low tidal volume ventilation strategy to prevent volutrauma Continue bronchodilators Currently sedated with propofol with daily sedation holiday Patient continues to have diffuse wheezing and crackles on exam continue Solu-Medrol Will give Lasix IV today CTA lung was negative for PE and showed 1. Bilateral interstitial changes of the lungs with interlobular septal thickening, patchy groundglass opacities, compatible with edema. Focal consolidation of the lower lobes is suspicious for superimposed pneumonia. Consider aspiration. (3) Cardiac arrest: Code(s): I46.9 - Cardiac arrest, cause unspecified Status: Acute Assessment and Plan: Patient had a PEA cardiac arrest which is likely secondary to respiratory failure as patient was short of breath and in respiratory distress for a while to collapsing. CT confirmed pulmonary edema and aspiration pneumonia. Negative for PE - On admission Patient received dose of Lasix with good urine output and improvement in her chest x-ray -troponins have plateaued, cardiac arrest not probably related to cardiac event more so a respiratory event -cardiology following, no specific cardiac recommendations at this time. 12/16/2022 echocardiogram: Showed EF of 60-65%, LV septal wall motion is abnormal with septal motion related to bundle branch block, RV systolic function is normal, no evaluate the dysfunction (4) CKD (chronic kidney disease): Code(s): N18.9 - Chronic kidney disease, unspecified Status: Chronic Assessment and Plan: Patient has history of chronic kidney disease with a baseline creatinine is unknown -multiple etiologies, cardiac arrest, diuretics, angiotensin receptor blockers at home, contrast, infection - obtain records from [facility] -12/18: Decreased urine output, worsening renal function -12/18: renal ultrasound: Will kidneys without hydronephrosis -urine sodium was low, reflective of prerenal, urine eosinophils were negative, CK levels mildly elevated at 238. -Nephrology following the patient -creatinine improved with IV fluids. Off IV fluids now Monitor urine output electrolytes and creatinine (5) Congestive heart failure: Code(s): I50.9 - Heart failure, unspecified Status: Acute Assessment and Plan: Patient has history of congestive heart failure but details unknown Echo as above Lasix IV today (6) Diabetes mellitus: Code(s): E11.9 - Type 2 diabetes mellitus without complications Status: Chronic Assessment and Plan: Continue sliding scale insulin at this time (7) Anoxic brain injury: Code(s): G93.1 - Anoxic brain damage, not elsewhere classified Status: Acute Assessment and Plan: Possibly sustained anoxic brain injury secondary to hypoxia/cardi
[2022-12-21] MEDS: DORNASE ALFA INH SOLN 1 MG/ML 2.5 ML AMP 2.5 MG INHALATION (08:22)
--- NOTE | 2022-12-21 09:27 | P.PNNP_ITS ---
Progress Note: A&P Assessment and Plan (1) LIZETTE (acute kidney injury): Code(s): N17.9 - Acute kidney failure, unspecified Status: Acute Assessment and Plan: * unclear on what baseline creatinine is * evaluation to date: * normal renal ultrasound * echocardiogram is okay * urine electrolytes are pre renal * CK is mildly high but improved and never high enough to cause kidney damage * suspect mutifactorial etiology * PEA arrest * diuretic/ARB/metformin use SUPERSONIC ENGINEER * contrast exposure (CTA on 12/16/22) - suspect main culprit insult * use of IV diuretics on admission * infection (possible pneumonia) * creatinine peaked at 2.2mg/dl and is now downtrending * follow trend of repeat las and UOP (2) CKD (chronic kidney disease): Code(s): N18.9 - Chronic kidney disease, unspecified Status: Chronic Assessment and Plan: * reported history but specifics are unclear * record request in progress * presumably due to HTN, DM, and possible CHF * outpatient medications (calcitriol and sodium bicarbonate) argue she was being followed by outpatient nephrology (3) Acute respiratory failure: Code(s): J96.00 - Acute respiratory failure, unspecified whether with hypoxia or hypercapnia Status: Acute Assessment and Plan: * secondary to cardiac arrest and complicated by pulmonary edema and aspiration pneumonia by recent imaging along with baseline COPD * on ventilator support * on antibiotics for aspiration pneumonia * weaning depends on improvement in mental status (concern for anoxic brain injury noted) (4) Cardiac arrest: Code(s): I46.9 - Cardiac arrest, cause unspecified Status: Acute Assessment and Plan: * PEA * likely secondary to respiratory failure * no PE by CTA of chest * Echo results noted * Cardiology following (5) Aspiration pneumonia: Code(s): J69.0 - Pneumonitis due to inhalation of food and vomit Status: Acute Assessment and Plan: * on Piperacillin and Vancomycin * follow culture data * respiratory/ventilator support (6) Anemia: Code(s): D64.9 - Anemia, unspecified Status: Acute Assessment and Plan: * admission Hgb 6.1 * PRBC transfusion per protocol * follow H/H (7) Diabetes mellitus: Code(s): E11.9 - Type 2 diabetes mellitus without complications Status: Chronic Assessment and Plan: * follow accuchecks * glycemic control per broadcast operations director Family meeting planned today. Will continue to follow. Subjective Date/time seen: 12/21/22 9:27 Interval history: Follow-up for acute kidney injury on chronic kidney disease. Chart reviewed since last seen -- remains intubated/sedated and on mechanical ventilation; no significant change in neurological status; renal function continues to improve with reasonable urine output; noted plans for family meeting regarding goals of care today. Exam Narrative: General: WD/WN female intubated/sedated and on mechanical ventilation Heart: normal S1 and S2; no rub Lungs: coarse bilaterally Abdomen: soft, nontender, nondistended, positive bowel sounds Extremities: no cyanosis or clubbing; 2+ edema Skin: warm and dry Objective Data Vital Signs Vital Signs: Vital Signs Temp Pulse Resp BP Pulse Ox O2 Del Method FiO2 12/21/22 08:00 40
--- NOTE | 2022-12-21 09:27 | PM.PNNEP ---
Progress Note: A&P Assessment and Plan (1) LIZETTE (acute kidney injury): Code(s): N17.9 - Acute kidney failure, unspecified Status: Acute Assessment and Plan: unclear on what baseline creatinine is evaluation to date: normal renal ultrasound echocardiogram is okay urine electrolytes are pre renal CK is mildly high but improved and never high enough to cause kidney damage suspect mutifactorial etiology PEA arrest diuretic/ARB/metformin use PIPELINE ENGINEER contrast exposure (CTA on 12/16/22) - suspect main culprit insult use of IV diuretics on admission infection (possible pneumonia) creatinine peaked at 2.2mg/dl and is now downtrending follow trend of repeat las and UOP (2) CKD (chronic kidney disease): Code(s): N18.9 - Chronic kidney disease, unspecified Status: Chronic Assessment and Plan: reported history but specifics are unclear record request in progress presumably due to HTN, DM, and possible CHF outpatient medications (calcitriol and sodium bicarbonate) argue she was being followed by outpatient nephrology (3) Acute respiratory failure: Code(s): J96.00 - Acute respiratory failure, unspecified whether with hypoxia or hypercapnia Status: Acute Assessment and Plan: secondary to cardiac arrest and complicated by pulmonary edema and aspiration pneumonia by recent imaging along with baseline COPD on ventilator support on antibiotics for aspiration pneumonia weaning depends on improvement in mental status (concern for anoxic brain injury noted) (4) Cardiac arrest: Code(s): I46.9 - Cardiac arrest, cause unspecified Status: Acute Assessment and Plan: PEA likely secondary to respiratory failure no PE by CTA of chest Echo results noted Cardiology following (5) Aspiration pneumonia: Code(s): J69.0 - Pneumonitis due to inhalation of food and vomit Status: Acute Assessment and Plan: on Piperacillin and Vancomycin follow culture data respiratory/ventilator support (6) Anemia: Code(s): D64.9 - Anemia, unspecified Status: Acute Assessment and Plan: admission Hgb 6.1 PRBC transfusion per protocol follow H/H (7) Diabetes mellitus: Code(s): E11.9 - Type 2 diabetes mellitus without complications Status: Chronic Assessment and Plan: follow accuchecks glycemic control per complaint operator Family meeting planned today. Will continue to follow. Subjective Date/time seen: 12/21/22 9:27 Interval history: Follow-up for acute kidney injury on chronic kidney disease. Chart reviewed since last seen -- remains intubated/sedated and on mechanical ventilation; no significant change in neurological status; renal function continues to improve with reasonable urine output; noted plans for family meeting regarding goals of care today. Exam Narrative: General: WD/WN female intubated/sedated and on mechanical ventilation Heart: normal S1 and S2; no rub Lungs: coarse bilaterally Abdomen: soft, nontender, nondistended, positive bowel sounds Extremities: no cyanosis or clubbing; 2+ edema Skin: warm and dry Objective Data Vital Signs Vital Signs: Vital Signs Temp Pulse Resp BP Pulse Ox O2 Del Method FiO2 12/21/22 08:00 40 12/21/22 08:00 84 12/21/22 08:43 78 24 H 12/21/22 08:00 78 22 H 12/21/22 08:00 78 100 Mechanical Ventilation 40 12/21/22 08:04 78 12/21/22 07:36 98.4 F 83 27 H 108/55 L 100 12/21/22 06:45 73 22 H 12/21/22 06:43 40 12/21/22 06:43 Mechanical Ventilation 40 12/21/22 06:00 98.3 F 71 22 H 98/54 L 95 12/21/22 06:00 71 12/21/22 05:10 70 96 Mechanical Ventilation 35 12/21/22 04:00 98.9 F 75 22 H 105/56 L 96 12/21/22 04:00 75 12/21/22 02:44 77 94 Mechanical Ventilation 35 12/21/22 04:00 35 12/21/22 04:0
[2022-12-21] MEDS: HEPARIN SODIUM 5,000 UNITS/ML VIAL 5000 UNITS SUB-Q (09:28)
[2022-12-21] MEDS: levETIRAcetam 500MG/NACL 100ML 500 MG/100 ML BAG 400 MG IVPB ×2 (09:28→20:28)
--- NOTE | 2022-12-21 10:43 | WPDNEUROLOGY ---
Neurology EEG Report General Information Date of Study: 12/21/22 TEST Routine EEG DIAGNOSIS Anoxic brain injury CONDITION OF RECORDING Unresponsive, off sedation EEG NUMBER [id number] CLINICAL HISTORY Patient presented due to cardiac arrest. No improvement in exam since weaning off sedation, remains unresponsive. Concern for anoxic brain injury. Has also had seizures during this course. EEG DESCRIPTION The recording is continuous. There is no posterior dominant rhythm nor is there an anterior-posterior gradient. The background is extremely suppressed, with very occasional delta range rhythms noted. No electrographic seizures or epileptiform discharges are noted. Normal sleep architecture is not present. There is quite a bit of muscle artifact due to tremulous movements. IMPRESSION This is an abnormal routine EEG due to the presence of significantly suppressed background with diffuse slowing. This finding can be seen in the setting of severe encephalopathy due to unspecified etiology. No seizures or epileptiform discharges are noted. Clinical correlation is recommended.
--- NOTE | 2022-12-21 11:01 | P.PNCROSS_ITS ---
Event Note Event Note Event Note: Family Meeting I met with patient's son, sister, brother, roommate and multiple other family members to discuss medical decisions and level of care. Patient was already DNR. We discussed patient's current status including respiratory failure, anoxic brain injury. I also updated them that EEG was done this morning results of which were pending at that time but I have reviewed EEG results since then. We discussed current treatment plan. We also discussed different prognostic outcomes and overall poor prognosis when it comes to functional recovery.. They all were in agreement the patient would not want to continue life support in light of severe neurological injury. They states that she always wanted to live a healthy functional life would not want to continue living her life dependent on machines and bed-bound. The family has decided, in accordance with pt's se kaiser, to discontinue all medical therapy and institute comfort measures only. I will use opioids, anxiolytics and other agents on as needed basis to promote comfort and discontinue all medical therapy, lab testing and invasive monitoring. I explained them by proceeding with palliative extubation and comfort care patient will eventually . They all verbalized understanding and agreed to proceed. Since patient was having seizures earlier and has been on propofol I will transition her to Versed infusion to treat potential seizures and myoclonic jerking. I will also use morphine for air hunger and discomfort. Total time spent 30 minutes in advanced care planning and coordination of care
--- NOTE | 2022-12-21 11:54 | PCFNICU ---
ICU Rounding Note: Pt current nutrition is NPO. Last recorded weight is 97.4 kg. Bowel Motility: +BM reported 12/20 Labs Reviewed:Cr 1.5,GFR 37, BUN 48, Alb 3.1,Hgb 9.3,Hct 28.3 Meds Noted:Keppra Atrovent Skin: WNL Additional Notes: Patient had EEG today. Plans for palliative extubation and comfort care patient. Tube feedings have been discontinued. No further nutritional needs. Following daily in ICU rounds.
[2022-12-21] MEDS: MIDAZOLAM 100MG/NS 100ML(*CRX) 100 MG/100 ML BAG IV CONT (12:25)
[2022-12-21] MEDS: MORPHINE SULFATE (*CRX) 2 MG/ML INJ 4 MG IV PUSH ×9 (12:27→21:24)
[2022-12-21] MEDS: LORazepam INJ (*CRX) 2 MG/ML VIAL 4 MG IV PUSH (12:50)
[2022-12-21] MEDS: MORPHINE SULFATE INJ (*CRX) 10 MG/ML AMP 5 MG IV PUSH (12:53)
[2022-12-21] MEDS: ATROPINE SULFATE 1% OPHTH SOLN 5 ML BOTTLE SUBLINGUAL ×3 (13:00→20:22)
[2022-12-21] MEDS: LORazepam INJ (*CRX) 2 MG/ML VIAL IV PUSH ×2 (14:45→18:13)
--- NOTE | 2022-12-21 17:42 | WPDPN ---
Progress Note: A&P Assessment and Plan (1) Cardiac arrest: Code(s): I46.9 - Cardiac arrest, cause unspecified Status: Acute Assessment and Plan: Patient is currently intubated unable to provide any review of symptoms or history, history is as recorded from reviewing electronic charts 12/21/2022 interval history: Patient is a 52-year-old with history of chronic respiratory failure with COPD on 2 L oxygen at home apparently patient was out with her friend and developed shortness of breath on her way home, 911 was called patient was in cardiac arrest and EMS instructed patient's friend start the CPR, and upon arrival of EMS patient was bradycardic and hypoxic patient was intubated patient was brought to the emergency depart, patient was hypothermic was placed on Silvino Hugger, on 12/18 patient was maintaining body temperature, patient was following commands, however on night of 12/18 patient was having seizures, CT scan of head showed diffuse effacement of the cortical sulci with poor farfan-white differentiation, suspicious for underlying vasogenic edema.?patient is started on Keprra and Valporic acid, neurologist is consulted, and patient had EEG,This is an abnormal routine EEG due to the presence of significantly suppressed background with diffuse slowing. This finding can be seen in the setting of severe encephalopathy due to unspecified etiology. No seizures or epileptiform discharges are noted.? discussed with intensive prognosis is guarded, on 12/19 tape recording machine operator spoke with family and now patient is DNR, and today patient family has decided to withdraw care and patient will be extubated, currently patient is in ICU seen by shoe singer and tape recording machine operator will continue to monitor. (2) Aspiration pneumonia: Code(s): J69.0 - Pneumonitis due to inhalation of food and vomit Status: Acute Assessment and Plan: Patient is being treated with Zosyn will continue to monitor (3) Anoxic brain injury: Code(s): G93.1 - Anoxic brain damage, not elsewhere classified Status: Acute Assessment and Plan: Patient was hypoxic in the feet and cardiac arrest most likely patient has anoxic brain injury seen by tape recording machine operator and shoe singer (4) Anemia: Code(s): D64.9 - Anemia, unspecified Status: Acute Assessment and Plan: Will monitor hemoglobin and further recommendation to follow (5) Electrolyte imbalance: Code(s): E87.8 - Other disorders of electrolyte and fluid balance, not elsewhere classified Status: Acute Assessment and Plan: Will monitor electrolytes and supplement as needed Subjective Date/time seen: 12/21/22 17:42 Interval history: 12/21/2022 interval history: Patient is a 52-year-old with history of chronic respiratory failure with COPD on 2 L oxygen at home apparently patient was out with her friend and developed shortness of breath on her way home, 911 was called patient was in cardiac arrest and EMS instructed patient's friend start the CPR, and upon arrival of EMS patient was bradycardic and hypoxic patient was intubated patient was brought to the emergency depart, patient was hypothermic was placed on Silvino Hugger, on 12/18 patient was maintaining body temperature, patient was following commands, however on night of 12/18 patient was having seizures, CT scan of head showed diffuse effacement of the cortical sulci with poor farfan-white differentiation, suspicious for underlying vasogenic edema.?patient is started on Keprra and Valporic acid, neurologist is consulted, and patient had EEG,This is an abnormal routine EEG due to the presence of significantly suppressed background with diffuse slowing. This finding can be seen in the setting of severe encephalopathy due to unspecified etiology. No seizures or epileptiform discharges are noted.? discussed with intensive prognosis is guarded, on 12/19 tape recording machine operator spoke with family and now patient is DNR, and today patient family
[2022-12-22] VITALS: BP 102/63; PULSE 89; RESP 26; TEMP 37.3; O2SAT 74
[2022-12-22] MEDS: ATROPINE SULFATE 1% OPHTH SOLN 5 ML BOTTLE SUBLINGUAL ×3 (00:17→09:00)
[2022-12-22] MEDS: MORPHINE SULFATE (*CRX) 2 MG/ML INJ 4 MG IV PUSH ×4 (00:20→11:21)
[2022-12-22 00:50] VITALS: TEMP 37.3
[2022-12-22] MEDS: CENTRAL LINE FLUSH 10 ML IV PUSH ×2 (03:22→14:06)
[2022-12-22 08:00] VITALS: BP 101/71; PULSE 93; RESP 19; TEMP 37.6; O2SAT 64
[2022-12-22] MEDS: MINERAL OIL/WHITE PETROLATUM OINTMENT 1 APPLIC EACH EYE (09:01)
[2022-12-22] MEDS: levETIRAcetam 500MG/NACL 100ML 500 MG/100 ML BAG 400 MG IVPB (09:01)
[2022-12-22 09:36] LABS: Arterial Blood Gas PEEP 5 cmH2O
[2022-12-22] MEDS: LORazepam INJ (*CRX) 2 MG/ML VIAL IV PUSH (11:21)
--- NOTE | 2022-12-22 15:31 | PM.DS ---
DS: Admitting Diagnosis Discharge Date 12/22/22 Admitting Diagnosis Cardiac arrest DS: Discharge Diagnosis Discharge Diagnosis (1) Cardiac arrest: Code(s): I46.9 - Cardiac arrest, cause unspecified Status: Acute Assessment and Plan: Patient is currently intubated unable to provide any review of symptoms or history, history is as recorded from reviewing electronic charts 12/21/2022 interval history: Patient is a 52-year-old with history of chronic respiratory failure with COPD on 2 L oxygen at home apparently patient was out with her friend and developed shortness of breath on her way home, 911 was called patient was in cardiac arrest and EMS instructed patient's friend start the CPR, and upon arrival of EMS patient was bradycardic and hypoxic patient was intubated patient was brought to the emergency depart, patient was hypothermic was placed on Silvino Hugger, on 12/18 patient was maintaining body temperature, patient was following commands, however on night of 12/18 patient was having seizures, CT scan of head showed diffuse effacement of the cortical sulci with poor farfan-white differentiation, suspicious for underlying vasogenic edema.?patient is started on Keprra and Valporic acid, neurologist is consulted, and patient had EEG,This is an abnormal routine EEG due to the presence of significantly suppressed background with diffuse slowing. This finding can be seen in the setting of severe encephalopathy due to unspecified etiology. No seizures or epileptiform discharges are noted.? discussed with intensive prognosis is guarded, on 12/19 technology engineer spoke with family and now patient is DNR, and today patient family has decided to withdraw care and patient will be extubated, currently patient is in ICU seen by information systems security specialist and technology engineer will continue to monitor. (2) Aspiration pneumonia: Code(s): J69.0 - Pneumonitis due to inhalation of food and vomit Status: Acute Assessment and Plan: Patient is being treated with Zosyn will continue to monitor (3) Anoxic brain injury: Code(s): G93.1 - Anoxic brain damage, not elsewhere classified Status: Acute Assessment and Plan: Patient was hypoxic in the feet and cardiac arrest most likely patient has anoxic brain injury seen by technology engineer and information systems security specialist (4) Anemia: Code(s): D64.9 - Anemia, unspecified Status: Acute Assessment and Plan: Will monitor hemoglobin and further recommendation to follow (5) Electrolyte imbalance: Code(s): E87.8 - Other disorders of electrolyte and fluid balance, not elsewhere classified Status: Acute Assessment and Plan: Will monitor electrolytes and supplement as needed DS: Summary Hospital Course Reason for hospitalization: Patient is currently intubated unable to provide any review of symptoms or history, history is as recorded from reviewing electronic charts Patient is a 52-year-old with history of chronic respiratory failure with COPD on 2 L oxygen at home apparently patient was out with her friend and developed shortness of breath on her way home, 911 was called patient was in cardiac arrest any EMS instructed patient's friend start the CPR, and upon arrival of EMS patient was bradycardic and hypoxic patient was intubated? patient was brought to the emergency depart, currently patient is in ICU seen by information systems security specialist and technology engineer will continue to monitor. Hospital Course: Patient is a 52-year-old with history of chronic respiratory failure with COPD on 2 L oxygen at home apparently patient was out with her friend and developed shortness of breath on her way home, 911 was called patient was in cardiac arrest and EMS instructed patient's friend start the CPR, and upon arrival of EMS patient was bradycardic and hypoxic patient was intubated? patient was brought to the emergency depart, patient was hypothermic was placed on Silvino Hugger, on 12/18? patient was maintaining body temp
== END 2022-12-22 14:28 | disposition hospice, inpatient (51) | DRG 208 ==
PROVIDERS: General Practice; Internal Medicine; Admitting Provider Internal Medicine; Visit Provider Family Medicine
DX: J96.00 Acute respiratory failure, unspecified whether with hypoxia or hypercapnia (principal); I46.8 Cardiac arrest due to other underlying condition; J69.0 Pneumonitis due to inhalation of food and vomit; G93.1 Anoxic brain damage, not elsewhere classified; I13.0 Hypertensive heart and chronic kidney disease with heart failure and stage 1 through stage 4 chronic kidney disease, or unspecified chronic kidney disease; J44.9 Chronic obstructive pulmonary disease, unspecified; E11.22 Type 2 diabetes mellitus with diabetic chronic kidney disease; N18.9 Chronic kidney disease, unspecified; I50.9 Heart failure, unspecified; R56.9 Unspecified convulsions; D64.9 Anemia, unspecified; F41.9 Anxiety disorder, unspecified; F32.A Depression, unspecified; F17.210 Nicotine dependence, cigarettes, uncomplicated; E87.8 Other disorders of electrolyte and fluid balance, not elsewhere classified; Z99.81 Dependence on supplemental oxygen; Z66 Do not resuscitate; E87.5 Hyperkalemia; Z51.5 Encounter for palliative care
CPT/HCPCS: 36415; 36600; 70450; 71045; 71250; 71275; 74177; 76775; 80048; 80053; 80202; 80307; 81003; 82375; 82436; 82550; 82570; 82805; 82948; 83050; 83605; 83735; 83880; 84100; 84133; 84145; 84300; 84478; 84484; 85027; 85610; 85730; 85999; 86850; 86870; 86880; 86900; 86901; 86902; 86905; 86922; 86971; 86972; 87040; 87070; 87081; 87086; 87205; 93005; 93306; 94002; 94003; 94640; 95816; A9270; C1751; C9113; J0171; J0692; J1644; J1815; J1940; J1953; J2060; J2250; J2270; J2543; J2704; J2930; J2997; J3010; J3370; J3475; J3480; J7030; J7040; J7042; J7120; Q9967

== ENCOUNTER 2022-12-22 14:29 | HOS | payer OTHER, MEDICARE, MEDICAID, SELFPAY ==
[2022-12-22] MEDS: diazePAM INJ (*CRX) 10 MG/2 ML SYRINGE 5 MG IV PUSH ×2 (16:01→20:00)
[2022-12-22] MEDS: HYDROmorphone HCL INJ (*CRX) 1 MG/ML SYR 0.5 MG IV PUSH (16:02)
[2022-12-22] MEDS: HYDROmorphone HCL/PF (*CRX) 50 MG in SODIUM CHLORIDE 0.9% IV 95 ML IV CONT (16:30)
[2022-12-22 18:29] VITALS: BMI 35.2
[2022-12-22 20:00] VITALS: O2SAT 90
--- NOTE | 2022-12-22 20:54 | PM.IMHP ---
H&P: HPI History of Present Illness Date/Time: 12/22/22 20:54 Chief Complaint: uncontrolled dyspnea and discomfort Narrative: This unfortunate 52-year-old female was ambulating when she became short of breath and experienced sudden cardiac arrest. There was delay in starting CPR. She was brought the emergency department where she was found to be in pulmonary edema with possible aspiration pneumonia. She also had acute kidney for. Leukocytosis. She was treated with diuresis and appropriate antibiotic therapy. She had a post arrest seizure. After cooling and rewarming she continued to signs of postanoxic encephalopathy. She was intubated on admission and extubated December 21. Because of her dyspnea and discomfort as well as severe ischemic brain dysfunction her daughter opted for inpatient hospice care. Review of Systems Review of Systems: ROS unobtainable: Yes unobtainable due to medical condition PMFSH Past Medical History Medical History CKD (chronic kidney disease) Congestive heart failure Depression Diabetes mellitus Surgical History Surgical History Status post lumbar spine surgery for decompression of spinal cord Family History Family History Sibling Hypertension Father Pancreatic adenoma Mother Asthma Other Diabetes mellitus Social History Social History (Updated 12/22/22 @ 20:55 by Luis Cesar MD) Social History: Heavy smoker in the past used to smoke 2 and half pack per day until a year ago. Recently smoking 1 pack a day. No prior hx of alcohol or drug abuse Smoking packs per day: 1 Smoking cigarettes per day: 20.0 Years smoked: 40 Smoking pack-years: 40.00 Smoking status: Former smoker Alcohol intake: never Substance use: never Spiritual care concerns: No Meds Home Medications and Allergies Home Medications Medication Instructions Recorded Confirmed Type allopurinol 100 mg tablet 100 mg PO DAILY 12/16/22 12/22/22 History atorvastatin 20 mg tablet 20 mg PO DAILY 12/16/22 12/22/22 History budesonide 160 mcg-glycopyr 9 2 inh inhalation BID 12/16/22 12/22/22 History mcg-formot 4.8 mcg/actuation HFA inhaler (Breztri Aerosphere) calcitriol 0.25 mcg capsule 0.25 mcg PO EVERY OTHER DAY 12/16/22 12/22/22 History cariprazine 4.5 mg capsule 4.5 mg PO DAILY 12/16/22 12/22/22 History (Vraylar) cyclobenzaprine 10 mg tablet 10 mg PO TID 12/16/22 12/22/22 History ergocalciferol (vitamin D2) 1,250 1,250 mcg PO WEEKLY 12/16/22 12/22/22 History mcg (50,000 unit) capsule furosemide 40 mg tablet 80 mg PO BID 12/16/22 12/22/22 History losartan 25 mg tablet 25 mg PO DAILY 12/16/22 12/22/22 History metformin 500 mg tablet 500 mg PO BID 12/16/22 12/22/22 History morphine 15 mg tablet,extended 15 mg PO Q8H 12/16/22 12/22/22 History release omeprazole 20 mg capsule,delayed 20 mg PO DAILY 12/16/22 12/22/22 History release potassium chloride 20 mEq 20 meq PO DAILY 12/16/22 12/22/22 History tablet,extended release(part/cryst) (Klor-Con M) propranolol 10 mg tablet 10 mg PO DAILY 12/16/22 12/22/22 History quetiapine 100 mg tablet 100 mg PO HS 12/16/22 12/22/22 History sodium bicarbonate 650 mg tablet 650 mg PO BID 12/16/22 12/22/22 History venlafaxine 75 mg capsule,extended 75 mg PO DAILY 12/16/22 12/22/22 History release 24 hr Allergies Allergy/AdvReac Type Severity Reaction Status Date / Time No Known Allergies Allergy Verified 12/17/22 10:49 Exam Narrative: Middle-aged female appearing older than her stated age lying comfortably in hospital bed. Minimally responsive to verbal or tactile stimuli. Neck without JVD. Chest coarse crackles bilaterally. Heart regular rate without audible murmurs. Abdomen protuberant but soft with hypoactive bowel sounds and no palpable masses. Extremities w
[2022-12-23] MEDS: GLYCOPYRROLATE INJ (*SP) 0.2 MG/ML VIAL 0.1 MG IV PUSH ×3 (05:25→20:34)
[2022-12-23] MEDS: diazePAM INJ (*CRX) 10 MG/2 ML SYRINGE 5 MG IV PUSH ×4 (05:26→20:34)
--- NOTE | 2022-12-23 12:50 | PM.IMPN ---
Progress Note: A&P Assessment and Plan (1) Palliative care encounter: Code(s): Z51.5 - Encounter for palliative care Status: Acute Assessment and Plan: Meet inpatient hospice criteria due to requiring continuous IV hydromorphone for control of discomfort and dyspnea. Remainder palliative regimen as ordered. Discussed care and prognosis with daughter at bedside 12/22/22 PM. Discussed care and prognosis with cousin at bedside 12/23/22. (2) Anoxic brain injury: Code(s): G93.1 - Anoxic brain damage, not elsewhere classified Status: Acute (3) Cardiac arrest: Code(s): I46.9 - Cardiac arrest, cause unspecified Status: Acute (4) Seizure: Code(s): R56.9 - Unspecified convulsions Status: Acute (5) LIZETTE (acute kidney injury): Code(s): N17.9 - Acute kidney failure, unspecified Status: Acute (6) Aspiration pneumonia: Code(s): J69.0 - Pneumonitis due to inhalation of food and vomit Status: Acute (7) Pulmonary edema: Code(s): J81.1 - Chronic pulmonary edema Status: Acute (8) Acute respiratory failure: Code(s): J96.00 - Acute respiratory failure, unspecified whether with hypoxia or hypercapnia Status: Acute (9) CKD (chronic kidney disease): Code(s): N18.9 - Chronic kidney disease, unspecified Status: Chronic (10) Congestive heart failure: Code(s): I50.9 - Heart failure, unspecified Status: Acute (11) Diabetes mellitus: Code(s): E11.9 - Type 2 diabetes mellitus without complications Status: Chronic (12) Anemia: Code(s): D64.9 - Anemia, unspecified Status: Acute Subjective Date/time seen: 12/23/22 12:50 Interval history: Comfortable overnight Review of Systems Review of Systems: ROS unobtainable: Yes unobtainable due to medical condition Exam Narrative: Middle-aged female appearing older than her stated age lying comfortably in hospital bed. Minimally responsive to verbal or tactile stimuli. Neck without JVD. Chest coarse crackles bilaterally. Heart regular rate without audible murmurs. Abdomen protuberant but soft with hypoactive bowel sounds and no palpable masses. Extremities without mild nonpitting edema. Musculoskeletal without gross deformity to visual inspection Neurologic cranial nerves symmetric to visual inspection. Objective Data Vital Signs Vital Signs: Vital Signs - 24 hr 12/22/22 20:00 12/23/22 08:39 12/23/22 08:00 Pulse Oximetry 90 Oxygen Delivery Nasal Cannula Nasal Cannula Nasal Cannula Oxygen Flow Rate 2 2 2 Intake/Output Intake/Output: Intake & Output 12/20/22 12/21/22 12/22/22 12/23/22 23:59 23:59 23:59 23:59 Output Total 750 Balance -750 Meds/Results Medications: Active Medications Generic Name Dose Route Start Last Admin Trade Name Freq PRN Reason Stop Dose Admin Acetaminophen 650 mg 12/22/22 15:38 Acetaminophen 650 Mg Suppository RECTAL Q6H PRN Fever Artificial Tears 1 drop 12/22/22 15:40 Artificial Tears Ophth Soln 15 Ml Bottle EACH EYE Q2H PRN Dry Eye(s) Bisacodyl 10 mg 12/22/22 15:37 Bisacodyl 10 Mg Suppository RECTAL QAM PRN Constipation Diazepam 5 mg 12/22/22 15:34 12/23/22 11:35 Diazepam Inj (*Crx) 10 Mg/2 Ml Syringe IV PUSH 5 mg Q4H PRN Administration Anxiety Glycopyrrolate 0.1 mg 12/22/22 15:36 12/23/22 05:25 Glycopyrrolate Inj (*Sp) 0.2 Mg/Ml Vial IV PUSH 0.1 mg Q6H PRN Administration Secretions Hydromorphone HCl 0.5 mg 12/22/22 15:33 12/22/22 16:02 Hydromorphone Hcl Inj (*Crx) 1 Mg/Ml Syr IV PUSH 0.5 mg Q2H PRN Administration Breakthrough Pain Hydromorphone HCl 50 mg/ 100 mls @ 0.5 mls/hr 12/22/22 16:00 12/22/22 16:30 Sodium Chloride IV CONT 0.25 mg/hr .Q24H HOLDEN 0.5 mls/hr Administration 0.25 MG/HR Prochlorperazine Edisylate 10 mg 12/22/22 15:35 Prochlorp
[2022-12-23] MEDS: HYDROmorphone HCL INJ (*CRX) 1 MG/ML SYR 0.5 MG IV PUSH ×3 (13:32→22:17)
[2022-12-23 16:35] VITALS: PULSE 103; RESP 26
[2022-12-23] MEDS: HYDROmorphone HCL/PF (*CRX) 50 MG in SODIUM CHLORIDE 0.9% IV 95 ML IV CONT (16:35)
[2022-12-23 16:47] VITALS: BP 140/54; PULSE 103; RESP 26; TEMP 37.7; O2SAT 89
[2022-12-23 20:00] VITALS: PULSE 103; RESP 26; O2SAT 89
[2022-12-23 21:05] VITALS: BP 140/79; PULSE 105; RESP 20; TEMP 36.4; O2SAT 100
[2022-12-24] MEDS: HYDROmorphone HCL INJ (*CRX) 1 MG/ML SYR IV PUSH ×8 (00:13→22:43)
[2022-12-24] MEDS: GLYCOPYRROLATE INJ (*SP) 0.2 MG/ML VIAL 0.1 MG IV PUSH ×2 (03:28→08:58)
[2022-12-24] MEDS: diazePAM INJ (*CRX) 10 MG/2 ML SYRINGE 5 MG IV PUSH ×4 (06:00→20:20)
[2022-12-24 08:00] VITALS: BP 135/76; PULSE 127; RESP 20; TEMP 37.6; O2SAT 92
[2022-12-24] MEDS: PHENobarbitaL sodium (*CRX) 130 MG/ML VIAL 60 MG IV PUSH ×3 (12:38→23:58)
[2022-12-24 13:35] VITALS: TEMP 38.8
[2022-12-24 14:55] VITALS: TEMP 37.3
[2022-12-24 15:58] VITALS: RESP 14
[2022-12-24] MEDS: HYDROmorphone HCL/PF (*CRX) 50 MG in SODIUM CHLORIDE 0.9% IV 95 ML IV CONT ×2 (15:58)
--- NOTE | 2022-12-24 17:20 | PM.IMPN ---
Progress Note: A&P Assessment and Plan (1) Palliative care encounter: Code(s): Z51.5 - Encounter for palliative care Status: Acute Assessment and Plan: Meet inpatient hospice criteria due to requiring continuous IV hydromorphone for control of discomfort and dyspnea. Remainder palliative regimen as ordered. Discussed care and prognosis with daughter at bedside 12/22/22 PM. Discussed care and prognosis with cousin at bedside 12/23/22. 12/24/22 increased hydromorphone to 1mg/hr and added phenobarbital 60mg IV q 6 hr. D/w Sister at bedside. (2) Anoxic brain injury: Code(s): G93.1 - Anoxic brain damage, not elsewhere classified Status: Acute (3) Cardiac arrest: Code(s): I46.9 - Cardiac arrest, cause unspecified Status: Acute (4) Seizure: Code(s): R56.9 - Unspecified convulsions Status: Acute (5) LIZETTE (acute kidney injury): Code(s): N17.9 - Acute kidney failure, unspecified Status: Acute (6) Aspiration pneumonia: Code(s): J69.0 - Pneumonitis due to inhalation of food and vomit Status: Acute (7) Pulmonary edema: Code(s): J81.1 - Chronic pulmonary edema Status: Acute (8) Acute respiratory failure: Code(s): J96.00 - Acute respiratory failure, unspecified whether with hypoxia or hypercapnia Status: Acute (9) CKD (chronic kidney disease): Code(s): N18.9 - Chronic kidney disease, unspecified Status: Chronic (10) Congestive heart failure: Code(s): I50.9 - Heart failure, unspecified Status: Acute (11) Diabetes mellitus: Code(s): E11.9 - Type 2 diabetes mellitus without complications Status: Chronic (12) Anemia: Code(s): D64.9 - Anemia, unspecified Status: Acute Subjective Date/time seen: 12/24/22 17:20 Interval history: Restless an tremulous earlier today. Resolved after increase in hydromorphone and addition of phenobarbital. Review of Systems Review of Systems: ROS unobtainable: Yes unobtainable due to medical condition Exam Narrative: Middle-aged female appearing older than her stated age lying comfortably in hospital bed. Minimally responsive to verbal or tactile stimuli. Neck without JVD. Chest coarse crackles bilaterally. Heart regular rate without audible murmurs. Abdomen protuberant but soft with hypoactive bowel sounds and no palpable masses. Extremities without mild nonpitting edema. Musculoskeletal without gross deformity to visual inspection Neurologic cranial nerves symmetric to visual inspection. Objective Data Vital Signs Vital Signs: Vital Signs - 24 hr 12/23/22 20:00 12/23/22 21:05 12/24/22 08:00 Temperature 97.6 F 99.6 F Pulse Rate 103 H 105 H 127 H Respiratory Rate 26 H 20 20 Blood Pressure 140/79 135/76 Pulse Oximetry 89 L 100 92 Oxygen Delivery Room Air 12/24/22 08:00 12/24/22 13:35 12/24/22 14:55 Temperature 101.9 F H 99.1 F Pulse Rate Respiratory Rate Blood Pressure Pulse Oximetry 92 Oxygen Delivery Room Air 12/24/22 15:58 12/24/22 15:58 Temperature Pulse Rate Respiratory Rate 14 14 Blood Pressure Pulse Oximetry Oxygen Delivery Intake/Output Intake/Output: Intake & Output 12/21/22 12/22/22 12/23/22 12/24/22 23:59 23:59 23:59 23:59 Intake Total 100 100 Output Total 1750 550 Balance -1650 -450 Meds/Results Medications: Active Medications Generic Name Dose Route Start Last Admin Trade Name Freq PRN Reason Stop Dose Admin Acetaminophen 650 mg 12/22/22 15:38 Acetaminophen 650 Mg Suppository RECTAL Q6H PRN Fever Artificial Tears 1 drop 12/22/22 15:40 Artificial Tears Ophth Soln 15 Ml Bottle EACH EYE Q2H PRN Dry Eye(s) Bisacodyl 10 mg 12/22/22 15:37 Bisacodyl 10 Mg Suppository RECTAL QAM PRN Constipation Diazepam 5 mg 12/22/22 15:34 12/24/22 14:12 Diazepam Inj (*Crx) 10 Mg/2 Ml Syringe IV PUS
[2022-12-24 20:00] VITALS: BP 88/62; PULSE 120; RESP 12; TEMP 37.5; O2SAT 70
[2022-12-25] MEDS: PHENobarbitaL sodium (*CRX) 130 MG/ML VIAL 60 MG IV PUSH ×3 (05:55→16:46)
[2022-12-25] MEDS: diazePAM INJ (*CRX) 10 MG/2 ML SYRINGE 5 MG IV PUSH ×4 (06:53→16:46)
[2022-12-25 08:00] VITALS: BP 101/49; PULSE 118; RESP 16; TEMP 37.9; O2SAT 93
[2022-12-25] MEDS: GLYCOPYRROLATE INJ (*SP) 0.2 MG/ML VIAL 0.1 MG IV PUSH (08:48)
[2022-12-25] MEDS: HYDROmorphone HCL INJ (*CRX) 1 MG/ML SYR IV PUSH ×3 (08:48→16:50)
[2022-12-25 09:47] VITALS: TEMP 38
[2022-12-25] MEDS: ACETAMINOPHEN 650 MG SUPPOSITORY RECTAL (09:47)
--- NOTE | 2022-12-25 12:35 | PM.IMPN ---
Progress Note: A&P Assessment and Plan (1) Palliative care encounter: Code(s): Z51.5 - Encounter for palliative care Status: Acute Assessment and Plan: Meet inpatient hospice criteria due to requiring continuous IV hydromorphone for control of discomfort and dyspnea. Remainder palliative regimen as ordered. Discussed care and prognosis with daughter at bedside 12/22/22 PM. Discussed care and prognosis with cousin at bedside 12/23/22. 12/24/22 increased hydromorphone to 1mg/hr and added phenobarbital 60mg IV q 6 hr. D/w Sister at bedside. 12/25/2022 increase hydromorphone to 1.5 milligram/hour. Scheduled diazepam 5 mg every 6 hours and 5 mg every 3 hours p.r.n. for tremors. Discussed with family at bedside. (2) Anoxic brain injury: Code(s): G93.1 - Anoxic brain damage, not elsewhere classified Status: Acute (3) Cardiac arrest: Code(s): I46.9 - Cardiac arrest, cause unspecified Status: Acute (4) Seizure: Code(s): R56.9 - Unspecified convulsions Status: Acute (5) LIZETTE (acute kidney injury): Code(s): N17.9 - Acute kidney failure, unspecified Status: Acute (6) Aspiration pneumonia: Code(s): J69.0 - Pneumonitis due to inhalation of food and vomit Status: Acute (7) Pulmonary edema: Code(s): J81.1 - Chronic pulmonary edema Status: Acute (8) Acute respiratory failure: Code(s): J96.00 - Acute respiratory failure, unspecified whether with hypoxia or hypercapnia Status: Acute (9) CKD (chronic kidney disease): Code(s): N18.9 - Chronic kidney disease, unspecified Status: Chronic (10) Congestive heart failure: Code(s): I50.9 - Heart failure, unspecified Status: Acute (11) Diabetes mellitus: Code(s): E11.9 - Type 2 diabetes mellitus without complications Status: Chronic (12) Anemia: Code(s): D64.9 - Anemia, unspecified Status: Acute Subjective Date/time seen: 12/25/22 12:35 Interval history: Febrile overnight. Had shaking episode this morning upper body and head. More tremors than tonic clonic movements. Family noted grimacing. Hydromorphone drip was increased earlier. Diazepam was scheduled every 6 hours. Review of Systems Review of Systems: ROS unobtainable: Yes unobtainable due to medical condition Exam Narrative: Middle-aged female appearing older than her stated age lying comfortably in hospital bed. Minimally responsive to verbal or tactile stimuli. Neck without JVD. Chest coarse crackles bilaterally. Heart regular rate without audible murmurs. Abdomen protuberant but soft with hypoactive bowel sounds and no palpable masses. Extremities without mild nonpitting edema. Musculoskeletal without gross deformity to visual inspection Neurologic cranial nerves symmetric to visual inspection. Objective Data Vital Signs Vital Signs: Vital Signs - 24 hr 12/24/22 13:35 12/24/22 14:55 12/24/22 15:58 Temperature 101.9 F H 99.1 F Pulse Rate Respiratory Rate 14 Blood Pressure Pulse Oximetry Oxygen Delivery 12/24/22 15:58 12/24/22 20:00 12/24/22 20:00 Temperature 99.5 F Pulse Rate 120 H Respiratory Rate 14 12 Blood Pressure 88/62 L Pulse Oximetry 70 L Oxygen Delivery Room Air 12/25/22 08:00 12/25/22 08:00 12/25/22 09:47 Temperature 100.2 F H 100.4 F H Pulse Rate 118 H Respiratory Rate 16 Blood Pressure 101/49 L Pulse Oximetry 93 Oxygen Delivery Room Air Intake/Output Intake/Output: Intake & Output 12/22/22 12/23/22 12/24/22 12/25/22 23:59 23:59 23:59 23:59 Intake Total 100 100 Output Total 1750 550 Balance -1650 -450 Meds/Results Medications: Active Medications Generic Name Dose Route Start Last Admin Trade Name Freq PRN Reason Stop Dose Admin Acetaminophen 650 mg 12/22/22 15:38 12/25/22 09:47 Acetaminophen 650 Mg Suppository RECTAL 650 mg Q6H PRN Admini
[2022-12-25] MEDS: HYDROmorphone HCL/PF (*CRX) 50 MG in SODIUM CHLORIDE 0.9% IV 95 ML IV CONT (16:46)
--- NOTE | 2022-12-25 21:00 | PM.DDS ---
Discharge Summary Date and Time Date of : 12/25/22 Time of : 18:55 Provider Pronounced By: Leanne Robles RN, Mamta Fields RN Probable Cause of Probable Cause of : anoxic encephalopathy due to cardiac arrest Summary Hospital Course: Admitted to inpatient hospice service. Medications titrated to comfort. Ms. Law peacefully. Additional Data Confirmation of as documented by pronouncing clinician: Pupillary Reflex, Palpable Pulses, Response to Stimuli, Heart Tones and Breath Sounds Name of Provider Notified: Dr. Cesar Time Provider Notified: 18:55 Provider Requests Autopsy: No Fountain Roller Assembler Notified: Yes Date [facility] Notified of : 12/25/22 Time [facility] Notified of : 19:08
== END 2022-12-25 18:55 | disposition expired | DRG 951 ==
LOC: ANHICU 15:35 → ANH3MEDSUR 17:23
PROVIDERS: Admitting Provider Internal Medicine; Visit Provider Internal Medicine
DX: Z51.5 Encounter for palliative care (principal); J69.0 Pneumonitis due to inhalation of food and vomit; J96.00 Acute respiratory failure, unspecified whether with hypoxia or hypercapnia; G93.1 Anoxic brain damage, not elsewhere classified; N17.9 Acute kidney failure, unspecified; I50.9 Heart failure, unspecified; D63.1 Anemia in chronic kidney disease; E11.22 Type 2 diabetes mellitus with diabetic chronic kidney disease; I46.9 Cardiac arrest, cause unspecified; N18.9 Chronic kidney disease, unspecified; R56.9 Unspecified convulsions
CPT/HCPCS: A9270; J1170; J2560; J3360